=== PATIENT | female | born 1960 | race Caucasian/White ===

== ENCOUNTER 2018-10-20 19:34 | Inpatient (IN) ==
[2018-10-20] MEDS ORDERED: *HR* Nalbuphine 10 MG/ML AMPUL IV STA (20:23)
[2018-10-20] MEDS ORDERED: 0.9 % Sodium Chloride 1,000 ML IVC ONE ×2 (20:23→21:17)
--- NOTE | 2018-10-20 20:23 | Emergency Department Note ---
Disposition Clinical Impression: Acute kidney injury Cellulitis Qualifiers: Site of cellulitis: extremity Site of cellulitis of extremity: lower extremity Laterality: left Qualified Code(s): L03.116 - Cellulitis of left lower limb Diabetes Qualifiers: Diabetes mellitus type: type 2 Diabetes mellitus halfway insulin use: without halfway use Diabetes mellitus complication status: without complication Qualified Code(s): E11.9 - Type 2 diabetes mellitus without complications Disposition: Admitted As Inpatient Condition: Fair Forms: ED Satisfaction Letter, Work/School Release Time of Disposition: 21:40 General Adult HPI - General Chief complaint: ED General Medical Stated complaint: multiple complaints Time Seen by Provider: 10/20/18 19:51 Source: patient, family Mode of arrival: private vehicle Limitations: no limitations Nursing Notes Reviewed: Yes Vital Signs Reviewed: Yes - History of Present Illness HPI Narrative: 58-year-old female presents to the emergency department for evaluation of left lower extremity swelling, redness, tenderness, generally just not feeling well, and increasing thirst, decreased urination since . Patient states she was at the swimming pool all day on when she got home she felt pretty warm which took a shower went to bed, when she woke up on Monday she had redness to her left lower extremity near her ankle and since then has continued to sp read through the entire lower extremity up to the knee and the foot, today she developed blistering and increasing redness "almost like a bruise" to the dorsal surface of the foot. She states she has only urinated one time in 24 hours and it is "orange and brown" with dysuria when she goes. She states she feels incredibly thirsty and she cannot get enough to drink, she has been tired and just generally not feeling well. She does state the last 3 days she had 1 day that she was nauseous, 1 day with vomiting, 1 day with diarrhea but this is all cleared. Patient does have a history of diabetes, she is on metformin. She denies fever, chills, shortness of breath, chest pain, abdominal pain, constipation.. no cancer, no longer trips, does not smoke, not on hormones, no history of blood clots Onset (ago): day(s) Location: lower extremity Radiation: non-radiation Pain Severity: moderate, severe Pain Scale: 8 Quality: aching, constant Consistency: constant Improves with: nothing Worsens with: movement, other (Palpitation) Associated symptoms: Reports: nausea/vomiting. Denies: confusion, chest pain, cough, diaphoresis, fever/chills, headaches, loss of appetite, malaise, rash, seizure, shortness of breath, syncope, weakness Treatments Prior to Arrival: none - Related Data Home Medications Medication Instructions Recorded Confirmed Aspirin [Adult Aspirin] 81 mg PO DAILY 10/20/18 10/20/18 Atorvastatin 10/20/18 10/20/18 Lisinopril 10/20/18 metFORMIN 1,000 mg PO BID 10/20/18 10/20/18 Allergies Allergy/AdvReac Type Severity Reaction Status Date / Time No Known Allergies Allergy Verified 10/20/18 20:40 All systems ED: reviewed and negative except as stated. Review of Systems: As Per [facility] Past Medical History - Past Medical History Attestation: Yes The following information was validated with the patient. Source: patient Medical history: Reports: diabetes, hypertension, other Psychiatric history: Reports: no psych history - Social History Smoking Status: Current some day smoker Smokeless Tobacco Status: No Alcohol use: Reports: none Drug use: Reports: none Physical Exam - General Limitations: no limitations General appearance: alert, in no apparent distress - Head Head exam: atraumatic, normocephalic, normal inspection - Eye Eye exam: Present: normal appearance - ENT ENT exam: mucous membranes moist - Neck Neck exam: Present: normal inspection, full ROM, trachea midline - Chest Chest inspection: Present: normal inspection, symmetric chest wall rise - Respiratory Respiratory exam: Present: normal lung sounds bilaterally - Cardiovascular Cardiovascular exam: Present: regular rate, normal rhythm, normal heart sounds, systolic murmur - Abdominal Exam Abdominal exam: Present: soft, Non-Tender, normal bowel sounds. Absent: tenderness, distention, guarding, rebound - Expanded Lower Extremity Exam Upper leg exam: Present: normal inspection, full ROM Knee exam: Present: normal inspection, full ROM Lower leg exam: Present: tenderness, swelling, erythema, other (warm to touch). Absent: ecchymosis, Homans' sign Ankle exam: Present: full ROM, tenderness, swelling, erythema Foot/toe exam: Present: full ROM, tenderness, swelling, erythema, other (small vesicular areas, appear as fluid shift) Neurovascular/Tendon exam: Present: normal capillary refill. Absent: pulse deficit, motor deficit, sensory deficit - Back Exam Back exam: Present: normal inspection, full ROM. Absent: tenderness - Neurological Exam Neurological exam: Present: alert, oriented X3 - Psychiatric Psychiatric exam: Present: normal affect, normal mood - Skin Skin exam: Present: warm, dry, intact, normal color Course Course Narrative: Well-developed female in no acute distress. Respirations are easy and even. Patient is afebrile, normotensive, non-tachycardic. EKG completed upon arrival at 20:04 reveals a sinus rhythm with a ventricular rate of 85 bpm, [place] interval 149 ms, QTC 474 ms, there is a left bundle branch block, no evidence of ischemia. The left bundle-branch block is new from previous EKG completed in 2002. Physical exam reveals left lower extremity edematous, erythemic and warm to touch, otherwise unremarkable. Wells -2, appears more cellulitic than that of a DVT, subjective history fits cellulitis more than a DVT as well. Concern for renal function given decreased urine, infectious etiology, early sepsis. Attending Dr. Leo has had one-on-one face time with patient and is agreeable to plan of care. 2119-patient has been resting quietly. Labs returned with a unremarkable CBC, negative troponin. Metabolic panel does show an elevation in creatinine of 2.22 and previously have been normal, elevated CK at 643. Lactic acid is unremarkable, UA without evidence of infection. There is no anion gap. Patient with an acute kidney injury as well as cellulitis of left lower extremity. She will require admission to hospital. We will initiate another liter of fluid and then start bicarbonate fluids, we will initiate myosin for the cellulitis. Patient is agreeable to admission to hospital. 2139--spoke with hospitalist Dr. Razo, agreeable for inpatient admission. We will monitor emergency department or admission process is completed. Patient remains critical plan of care. Vital Signs Temperature 97.6 F 10/20/18 19:39 Pulse Rate 101 10/20/18 19:39 Respiratory Rate 16 10/20/18 19:39 Blood Pressure 129/70 10/20/18 19:39 O2 Sat by Pulse Oximetry 96 10/20/18 19:39 Temperature 97.6 F 10/20/18 19:39 Pulse Rate 81 10/20/18 21:24 Respiratory Rate 16 08/03/19 21:24 Blood Pressure 125/61 08/03/19 21:24 O2 Sat by Pulse Oximetry 97 10/20/18 21:24 Oxygen Delivery Oxygen Delivery Room Air Medical Decision Making - Lab Data Result diagrams: 10/20/18 20:10 10/20/18 20:10 Lab Results 10/20/18 10/20/18 10/20/18 Range/Units 20:10 20:10 20:10 WBC 8.2 (4.3-11.1) K/mcL RBC 3.98 (3.82-4.97) M/mcL Hgb 10.4 L (11.5-15.4) g/dL Hct 31.8 L (35.3-44.9) % MCV 79.9 L (83.0-100.0) fL MCH 26.1 L (28.0-33.3) pg MCHC 32.7 (31.6-35.5) g/dL RDW 13.2 (11.5-14.5) % Plt Count 133 L (140-400) K/mcL MPV 9.8 (9.4-12.4) fL Immature Gran % 0.6 (0-4) % Seg Neutrophils % 83.7 % Lymphocytes % 7.2 % Monocytes % 7.7 % Eosinophils % 0.4 % Basophils % 0.4 % Neutrophils # 6.9 (1.6-8.9) K/mcL Lymphocytes # 0.6 (0.6-4.6) K/mcL Monocytes # 0.6 (0.0-1.3) K/mcL Eosinophils # 0.0 (0.0-0.6) K/mcL Basophils # 0.0 (0.0-0.2) K/mcL Platelet Estimate Slight Decrease L (Normal) VBG pH (7.32-7.42) pH Units VBG pCO2 (41-51) mmHg VBG pO2 (25-50) mmHg VBG HCO3 (21-27) mEq/L Sodium 135 L (136-145) mEq/L Potassium 3.4 L (3.5-5.1) mEq/L Chloride 100 (98-107) mEq/L Carbon Dioxide 21 L (23-29) mEq/L BUN 45 H (6-20) mg/dL Creatinine 2.22 H (0.60-1.20) mg/dL Est GFR ( Amer) 28 L (> 60) Est GFR (Non-Af Amer) 23 L (> 60) BUN/Creatinine Ratio 20 (6-26) Glucose 176 H (70-105) mg/dL Serum Osmolality 299 (280-300) mOsm/kg Calculated Osmolality 296 (280-300) Lactic Acid (0.5-2.2) mmol/L Calcium 8.9 (8.6-10.3) mg/dL Total Bilirubin 0.7 (0.3-1.0) mg/dL Direct Bilirubin 0.2 (0.0-0.2) mg/dL Indirect Bilirubin 0.5 (0.0-1.2) mg/dL AST 16 (13-39) Units/L ALT 13 (7-52) Units/L Alkaline Phosphatase 80 (34-104) Units/L Creatine Kinase 643 H (30-223) Units/L Troponin I < 0.03 (< 0.04) ng/mL Serum Total Protein 6.6 (6.4-8.9) g/dL Albumin 3.5 (3.5-5.7) g/dL Globulin 3.1 (2.4-3.5) g/dL Albumin/Globulin Ratio 1.1 (1.1-2.2) Urine Color (Yellow) Urine Clarity (Clear) Urine pH (5.0-8.0) pH Units Ur Specific [place] (1.010-1.025) Urine Protein (Neg-Trace) mg/dL Urine Glucose (UA) (Normal) mg/dL Urine Ketones (Negative) mg/dL Urine Blood (Negative) Urine Nitrite (Negative) Urine Bilirubin (Negative) Urine Urobilinogen (Normal) mg/dL Ur Leukocyte Esterase (Negative) Urine Microscopic RBC (0-3) per hpf Urine Microscopic WBC (0-3) per hpf Ur Squamous Epith Cells (None-Few) per lpf Urine Bacteria (None-Few) per hpf Hyaline Casts (None-Few) per lpf Urine Yeast (None Seen) per hpf Ur Culture Indicated? (NO) 10/20/18 10/20/18 10/20/18 Range/Units 20:23 20:42 20:44 WBC (4.3-11.1) K/mcL RBC (3.82-4.97) M/mcL Hgb (11.5-15.4) g/dL Hct (35.3-44.9) % MCV (83.0-100.0) fL MCH (28.0-33.3) pg MCHC (31.6-35.5) g/dL RDW (11.5-14.5) % Plt Count (140-400) K/mcL MPV (9.4-12.4) fL Immature Gran % (0-4) % Seg Neutrophils % % Lymphocytes % % Monocytes % % Eosinophils % % Basophils % % Neutrophils # (1.6-8.9) K/mcL Lymphocytes # (0.6-4.6) K/mcL Monocytes # (0.0-1.3) K/mcL Eosinophils # (0.0-0.6) K/mcL Basophils # (0.0-0.2) K/mcL Platelet Estimate (Normal) VBG pH 7.41 (7.32-7.42) pH Units VBG pCO2 31 L (41-51) mmHg VBG pO2 62 H (25-50) mmHg VBG HCO3 20 L (21-27) mEq/L Sodium (136-145) mEq/L Potassium (3.5-5.1) mEq/L Chloride (98-107) mEq/L Carbon Dioxide (23-29) mEq/L BUN (6-20) mg/dL Creatinine (0.60-1.20) mg/dL Est GFR ( Amer) (> 60) Est GFR (Non-Af Amer) (> 60) BUN/Creatinine Ratio (6-26) Glucose (70-105) mg/dL Serum Osmolality (280-300) mOsm/kg Calculated Osmolality (280-300) Lactic Acid 1.1 (0.5-2.2) mmol/L Calcium (8.6-10.3) mg/dL Total Bilirubin (0.3-1.0) mg/dL Direct Bilirubin (0.0-0.2) mg/dL Indirect Bilirubin (0.0-1.2) mg/dL AST (13-39) Units/L ALT (7-52) Units/L Alkaline Phosphatase (34-104) Units/L Creatine Kinase (30-223) Units/L Troponin I (< 0.04) ng/mL Serum Total Protein (6.4-8.9) g/dL Albumin (3.5-5.7) g/dL Globulin (2.4-3.5) g/dL Albumin/Globulin Ratio (1.1-2.2) Urine Color Dark Yellow (Yellow) Urine Clarity Cloudy A (Clear) Urine pH 5.0 (5.0-8.0) pH Units Ur Specific [place] 1.018 (1.010-1.025) Urine Protein Trace (Neg-Trace) mg/dL Urine Glucose (UA) Normal (Normal) mg/dL Urine Ketones Negative (Negative) mg/dL Urine Blood Negative (Negative) Urine Nitrite Negative (Negative) Urine Bilirubin Small H (Negative) Urine Urobilinogen Normal (Normal) mg/dL Ur Leukocyte Esterase Moderate H (Negative) Urine Microscopic RBC 0-3 (0-3) per hpf Urine Microscopic WBC 5-15 H (0-3) per hpf Ur Squamous Epith Cells Many H (None-Few) per lpf Urine Bacteria None Seen (None-Few) per hpf Hyaline Casts Few (None-Few) per lpf Urine Yeast Few H (None Seen) per hpf Ur Culture Indicated? YES A (NO)
[2018-10-20 20:43] LABS: Basophils % 0.4 %; Eosinophils % 0.4 %; Hematocrit 31.8 % (35.3-44.9); Hemoglobin 10.4 g/dL (11.5-15.4); Immature Granulocytes % 0.6 % (0-4); Lymphocytes # 0.6 K/mcL (0.6-4.6); Lymphocytes % 7.2 %; Mean Corpuscular HGB Conc 32.7 g/dL (31.6-35.5); Mean Corpuscular Hemoglobin 26.1 pg (28.0-33.3); Mean Corpuscular Volume 79.9 fL (83.0-100.0); Mean Platelet Volume 9.8 fL (9.4-12.4); Monocytes # 0.6 K/mcL (0.0-1.3); Monocytes % 7.7 %; Neutrophils # 6.9 K/mcL (1.6-8.9); Platelet Count 133 K/mcL (140-400); Red Blood Count 3.98 M/mcL (3.82-4.97); Red Cell Distribution Width 13.2 % (11.5-14.5); Segmented Neutrophils % 83.7 %; White Blood Count 8.2 K/mcL (4.3-11.1)
[2018-10-20 20:46] LABS: VBG HCO3 20 mEq/L (21-27); VBG PCO2 31 mmHg (41-51); VBG PH 7.41 pH Units (7.32-7.42); VBG PO2 62 mmHg (25-50)
[2018-10-20 20:55] LABS: Bilirubin,Urine Small (Negative); Blood,Urine Negative (Negative); Clarity,Urine Cloudy (Clear); Color,Urine Dark Yellow (Yellow); Glucose,Urine (UA) Normal (Normal); Ketones,Urine Negative (Negative); Leukocyte Esterase,Urine Moderate (Negative); Nitrite,Urine Negative (Negative); Protein,Urine Trace mg/dL (Neg-Trace); Specific Gravity,Urine 1.018 (1.010-1.025); Urobilinogen,Urine Normal (Normal)
[2018-10-20 20:58] LABS: Bacteria,Urine None Seen per hpf (None-Few); Squamous Epithelial Cell,Urine Many per lpf (None-Few)
[2018-10-20 21:06] LABS: Alanine Aminotransferase 13 Units/L (7-52); Albumin 3.5 g/dL (3.5-5.7); Albumin/Globulin Ratio 1.1 (1.1-2.2); Alkaline Phosphatase 80 Units/L (34-104); Aspartate Amino Transferase 16 Units/L (13-39); BUN/Creatinine Ratio 20 (6-26); Bilirubin,Direct 0.2 mg/dL (0.0-0.2); Bilirubin,Indirect 0.5 mg/dL (0.0-1.2); Bilirubin,Total 0.7 mg/dL (0.3-1.0); Blood Urea Nitrogen 45 mg/dL (6-20); Calcium 8.9 mg/dL (8.6-10.3); Carbon Dioxide 21 mEq/L (23-29); Chloride 100 mEq/L (98-107); Creatine Kinase 643 Units/L (30-223); Globulin 3.1 g/dL (2.4-3.5); Glucose 176 mg/dL (70-105); Osmolality,Calculated 296 (280-300); Potassium 3.4 mEq/L (3.5-5.1); Sodium 135 mEq/L (136-145); Total Protein 6.6 g/dL (6.4-8.9); Troponin I < 0.03 ng/mL (< 0.04); eGFR For African Americans 28 (> 60); eGFR For Non-African Americans 23 (> 60)
[2018-10-20 21:14] LABS: Hyaline Casts,Urine Few per lpf (None-Few); RBC,Urine 0-3 per hpf (0-3); Yeast,Urine Few per hpf (None Seen)
[2018-10-20 21:23] LABS: Platelet Estimate Slight Decrease (Normal)
[2018-10-20] MEDS ORDERED: Sodium Bicarbonate 150 MEQ in D5% in Water 1,000 ML IVC SCH (21:30)
[2018-10-20] MEDS ORDERED: Dextrose Gel 15 GM/37.5 ML TUBE PO PRN ×2 (22:07)
[2018-10-20] MEDS ORDERED: *HR* Dextrose 50 % in Water (Syg) 50 ML SYRINGE IVP PRN (22:07)
--- NOTE | 2018-10-20 22:31 | Emergency Department Note ---
Disposition Clinical Impression: Acute kidney injury Cellulitis Qualifiers: Site of cellulitis: extremity Site of cellulitis of extremity: lower extremity Laterality: left Qualified Code(s): L03.116 - Cellulitis of left lower limb Diabetes Qualifiers: Diabetes mellitus type: type 2 Diabetes mellitus alf insulin use: without alf use Diabetes mellitus complication status: without complication Qualified Code(s): E11.9 - Type 2 diabetes mellitus without complications Disposition: Admitted As Inpatient Condition: Fair Time of Disposition: 22:31 General Adult HPI - General Chief complaint: ED General Medical Stated complaint: multiple complaints Time Seen by Provider: 10/20/18 19:51 Source: patient, family Mode of arrival: private vehicle Limitations: no limitations - History of Present Illness Location: lower extremity Pain Scale: 0 Quality: aching, constant Improves with: nothing Worsens with: movement, other (Palpitation) Associated symptoms: Reports: nausea/vomiting. Denies: confusion, chest pain, cough, diaphoresis, fever/chills, headaches, loss of appetite, malaise, rash, seizure, shortness of breath, syncope, weakness Treatments Prior to Arrival: none - Related Data Home Medications Medication Instructions Recorded Confirmed Aspirin [Adult Aspirin] 81 mg PO DAILY 10/20/18 10/20/18 Atorvastatin 10/20/18 10/20/18 Lisinopril 10/20/18 metFORMIN 1,000 mg PO BID 10/20/18 10/20/18 Allergies Allergy/AdvReac Type Severity Reaction Status Date / Time No Known Allergies Allergy Verified 10/20/18 20:40 Past Medical History - Past Medical History Medical history: Reports: diabetes, hypertension, other Psychiatric history: Reports: no psych history - Social History Smoking Status: Current some day smoker Smokeless Tobacco Status: No Alcohol use: Reports: none Drug use: Reports: none Physical Exam - General Limitations: no limitations General appearance: alert, in no apparent distress Course Vital Signs Temperature 97.6 F 10/20/18 19:39 Pulse Rate 101 10/20/18 19:39 Respiratory Rate 16 10/20/18 19:39 Blood Pressure 129/70 10/20/18 19:39 O2 Sat by Pulse Oximetry 96 10/20/18 19:39 Temperature 97.6 F 10/20/18 19:39 Pulse Rate 86 10/20/18 22:05 Respiratory Rate 16 10/20/18 22:05 Blood Pressure 116/60 10/20/18 22:05 O2 Sat by Pulse Oximetry 99 10/20/18 22:05 Oxygen Delivery Oxygen Delivery Room Air Medical Decision Making - Lab Data Result diagrams: 10/20/18 20:10 10/20/18 20:10 Lab Results 10/20/18 10/20/18 10/20/18 Range/Units 20:10 20:10 20:10 WBC 8.2 (4.3-11.1) K/mcL RBC 3.98 (3.82-4.97) M/mcL Hgb 10.4 L (11.5-15.4) g/dL Hct 31.8 L (35.3-44.9) % MCV 79.9 L (83.0-100.0) fL MCH 26.1 L (28.0-33.3) pg MCHC 32.7 (31.6-35.5) g/dL RDW 13.2 (11.5-14.5) % Plt Count 133 L (140-400) K/mcL MPV 9.8 (9.4-12.4) fL Immature Gran % 0.6 (0-4) % Seg Neutrophils % 83.7 % Lymphocytes % 7.2 % Monocytes % 7.7 % Eosinophils % 0.4 % Basophils % 0.4 % Neutrophils # 6.9 (1.6-8.9) K/mcL Lymphocytes # 0.6 (0.6-4.6) K/mcL Monocytes # 0.6 (0.0-1.3) K/mcL Eosinophils # 0.0 (0.0-0.6) K/mcL Basophils # 0.0 (0.0-0.2) K/mcL Platelet Estimate Slight Decrease L (Normal) VBG pH (7.32-7.42) pH Units VBG pCO2 (41-51) mmHg VBG pO2 (25-50) mmHg VBG HCO3 (21-27) mEq/L Sodium 135 L (136-145) mEq/L Potassium 3.4 L (3.5-5.1) mEq/L Chloride 100 (98-107) mEq/L Carbon Dioxide 21 L (23-29) mEq/L BUN 45 H (6-20) mg/dL Creatinine 2.22 H (0.60-1.20) mg/dL Est GFR ( Amer) 28 L (> 60) Est GFR (Non-Af Amer) 23 L (> 60) BUN/Creatinine Ratio 20 (6-26) Glucose 176 H (70-105) mg/dL Serum Osmolality 299 (280-300) mOsm/kg Calculated Osmolality 296 (280-300) Lactic Acid (0.5-2.2) mmol/L Calcium 8.9 (8.6-10.3) mg/dL Total Bilirubin 0.7 (0.3-1.0) mg/dL Direct Bilirubin 0.2 (0.0-0.2) mg/dL Indirect Bilirubin 0.5 (0.0-1.2) mg/dL AST 16 (13-39) Units/L ALT 13 (7-52) Units/L Alkaline Phosphatase 80 (34-104) Units/L Creatine Kinase 643 H (30-223) Units/L Troponin I < 0.03 (< 0.04) ng/mL Serum Total Protein 6.6 (6.4-8.9) g/dL Albumin 3.5 (3.5-5.7) g/dL Globulin 3.1 (2.4-3.5) g/dL Albumin/Globulin Ratio 1.1 (1.1-2.2) Urine Color (Yellow) Urine Clarity (Clear) Urine pH (5.0-8.0) pH Units Ur Specific [place] (1.010-1.025) Urine Protein (Neg-Trace) mg/dL Urine Glucose (UA) (Normal) mg/dL Urine Ketones (Negative) mg/dL Urine Blood (Negative) Urine Nitrite (Negative) Urine Bilirubin (Negative) Urine Urobilinogen (Normal) mg/dL Ur Leukocyte Esterase (Negative) Urine Microscopic RBC (0-3) per hpf Urine Microscopic WBC (0-3) per hpf Ur Squamous Epith Cells (None-Few) per lpf Urine Bacteria (None-Few) per hpf Hyaline Casts (None-Few) per lpf Urine Yeast (None Seen) per hpf Ur Culture Indicated? (NO) 10/20/18 10/20/18 10/20/18 Range/Units 20:23 20:42 20:44 WBC (4.3-11.1) K/mcL RBC (3.82-4.97) M/mcL Hgb (11.5-15.4) g/dL Hct (35.3-44.9) % MCV (83.0-100.0) fL MCH (28.0-33.3) pg MCHC (31.6-35.5) g/dL RDW (11.5-14.5) % Plt Count (140-400) K/mcL MPV (9.4-12.4) fL Immature Gran % (0-4) % Seg Neutrophils % % Lymphocytes % % Monocytes % % Eosinophils % % Basophils % % Neutrophils # (1.6-8.9) K/mcL Lymphocytes # (0.6-4.6) K/mcL Monocytes # (0.0-1.3) K/mcL Eosinophils # (0.0-0.6) K/mcL Basophils # (0.0-0.2) K/mcL Platelet Estimate (Normal) VBG pH 7.41 (7.32-7.42) pH Units VBG pCO2 31 L (41-51) mmHg VBG pO2 62 H (25-50) mmHg VBG HCO3 20 L (21-27) mEq/L Sodium (136-145) mEq/L Potassium (3.5-5.1) mEq/L Chloride (98-107) mEq/L Carbon Dioxide (23-29) mEq/L BUN (6-20) mg/dL Creatinine (0.60-1.20) mg/dL Est GFR ( Amer) (> 60) Est GFR (Non-Af Amer) (> 60) BUN/Creatinine Ratio (6-26) Glucose (70-105) mg/dL Serum Osmolality (280-300) mOsm/kg Calculated Osmolality (280-300) Lactic Acid 1.1 (0.5-2.2) mmol/L Calcium (8.6-10.3) mg/dL Total Bilirubin (0.3-1.0) mg/dL Direct Bilirubin (0.0-0.2) mg/dL Indirect Bilirubin (0.0-1.2) mg/dL AST (13-39) Units/L ALT (7-52) Units/L Alkaline Phosphatase (34-104) Units/L Creatine Kinase (30-223) Units/L Troponin I (< 0.04) ng/mL Serum Total Protein (6.4-8.9) g/dL Albumin (3.5-5.7) g/dL Globulin (2.4-3.5) g/dL Albumin/Globulin Ratio (1.1-2.2) Urine Color Dark Yellow (Yellow) Urine Clarity Cloudy A (Clear) Urine pH 5.0 (5.0-8.0) pH Units Ur Specific [place] 1.018 (1.010-1.025) Urine Protein Trace (Neg-Trace) mg/dL Urine Glucose (UA) Normal (Normal) mg/dL Urine Ketones Negative (Negative) mg/dL Urine Blood Negative (Negative) Urine Nitrite Negative (Negative) Urine Bilirubin Small H (Negative) Urine Urobilinogen Normal (Normal) mg/dL Ur Leukocyte Esterase Moderate H (Negative) Urine Microscopic RBC 0-3 (0-3) per hpf Urine Microscopic WBC 5-15 H (0-3) per hpf Ur Squamous Epith Cells Many H (None-Few) per lpf Urine Bacteria None Seen (None-Few) per hpf Hyaline Casts Few (None-Few) per lpf Urine Yeast Few H (None Seen) per hpf Ur Culture Indicated? YES A (NO) Attestation Statement - Attestation Attestation: I have seen this patient with the mid level provider. I personally evaluated this patient. I reviewed the charting by the mid-level provider and in ag reement with the charting including past medical history family history review of systems current history and physical examination laboratory testing and imaging. Please see documentation by the mid-level provider for full H&P and documentation.
--- NOTE | 2018-10-20 22:47 | Internal Med History&Physical ---
Date of Encounter: 10/20/18 Time of Encounter: 22:46 Internal Medicine - H&P: HPI Admitted From: Home Plans for Post Hospital Care: Home History of present illness: Sissy Mcclain is a 58 year old woman with hypertension and diabetes who [place] and the next day developed painful swelling of her left lower extremity. She denies trauma to the area. She says it gradually worsened in regards to the degree of swelling, accompanied by warmth and redness. She has also noticed decreased urine output, saying she urinates only once in 24 hours over the last few days. She says she feels significantly thirsty and parched as though she were in a desert. She says this morning noticed blistering in her left foot and extension of the swelling to her knee. She feels generalized malaise, fatigued and not feeling well. She reports having been nauseated with 1 episode of vomiting and diarrhea on day 1. She denies associated fever, chills, shortness of breath, dyspnea and abdominal pain however. In the ER she was given a dose of vancomycin. Her labs revealed a notable elevation in her serum creatinine and mild decrease in Hgb & platelets. She is admitted for further care. Vitals: Reviewed General: Well-developed woman lying comfortably in bed in NAD Skin: Warm and supple. HEENT: Moist mucous membranes. No conjunctivae pallor. Neck: No lymphadenopathy. No JVD. No carotid bruits. No palpable thyroid. Chest: Normal thoracic expansion. Normal breath sounds. Clear to auscultation. Heart: Normal S1 & S2; rhythmic. No rubs or murmurs. Abdomen: Non-distended, soft and non-tender to palpation. No peritoneal reaction. Extremities: Left leg is circumferentially larger than the right, swollen with taut, shiny skin, warm to touch, skin dimpling on the posterior aspect and moderately tender to touch. Erythematous blisters forming on the dorsal foot. Neurological: Awake, alert and oriented to person, place and time. No focal deficits. Psych: Affect appropriate. Assessment/Plan 1. Non-purulent cellulitis of the left lower leg: There were no skin openings visualized on thorough examination of this left leg which could have served as a point of entry. The timely association with swimming in a city pool prompts concern for certain gram negative bacilli that are that are frequently seen in freshwater scenarios and even mycobacteria although less likely. I believe she needs more than simple Staph/Streptococcal coverage for now. Will get a non-con trast CT scan for now as well as a venous Doppler. Continue vancomycin and add on cefepime 1gr q12hrs (based on her current CrCl). 2. Acute kidney injury: I am concerned that the patient may have developed some form of ATN perhaps related to her underlying infection. The concomitant thrombocytopenia and anemia however mild should prompt an acquired infectious- induced hemolytic uremic syndrome on the differential especially with the diarrheal antecedent and the present inflammatory state. For now, there is no evidence of microscopic hematuria, schistocytes on smear, Hgb <8g/dl all of which would be concerning. There is also moderate CPK elevation which can also cause DISHA but it is unclear if this is recently developing or if we are catching the tail end of it. For now, she has a mccormick placed so we can monitor her output as we continue to provide IVF. Repeat BMP and CK in the morning. 3. Bicytopenia: As mentioned above. Will check iron studies and check for hemolysis. Monitor closely. 4. Rhabdomyolysis: Mild. Likely from the leg swelling and underlying tissue destruction. Will get a CT, IVF running and monitor levels. 5. Diabetes: Hold metformin in the setting of DISHA. Place on insulin sliding scale with diabetic diet. 6. Hypertension: Hold Lisinopril in the setting of current DISHA. Past Med Surg Social Fam HX - Past Medical History Medical history: diabetes, hypertension, other Psychiatric history: no psych history - Social History Smoking Status: Current some day smoker Smokeless Tobacco Status: No Alcohol use: none Drug use: none Internal Medicine - H&P: Meds Aspirin [Adult Aspirin] 81 mg PO DAILY 10/20/18 [History] Atorvastatin 10/20/18 [History] Lisinopril 10/20/18 [History] metFORMIN 1,000 mg PO BID 10/20/18 [History] Allergy/AdvReac Type Severity Reaction Status Date / Time No Known Allergies Allergy Verified 10/20/18 20:40 All Systems PM: A 10-system review of systems was performed and is negative for pertinent findings except as documented above in the HPI. Family history reviewed and found non-contributory. - Constitutional Vitals: Temp Pulse Resp BP Pulse Ox 97.6 F 86 16 116/60 99 10/20/18 19:39 10/20/18 22:05 10/20/18 22:05 10/20/18 22:05 10/20/18 22:05 Exam: . Internal Med - H&P Results - Labs CBC & Chem 7: 10/20/18 20:10 10/20/18 20:10 Labs: Short CBC 10/20/18 Range/Units 20:10 WBC 8.2 (4.3-11.1) K/mcL Hgb 10.4 L (11.5-15.4) g/dL Hct 31.8 L (35.3-44.9) % Plt Count 133 L (140-400) K/mcL Neutrophils # 6.9 (1.6-8.9) K/mcL BMP 10/20/18 20:10 Sodium 135 L Potassium 3.4 L Chloride 100 Carbon Dioxide 21 L BUN 45 H Creatinine 2.22 H Glucose 176 H Calcium 8.9 Cardiac Enzymes 10/20/18 Range/Units 20:10 Troponin I < 0.03 (< 0.04) ng/mL Liver Function 10/20/18 Range/Units 20:10 Total Bilirubin 0.7 (0.3-1.0) mg/dL Direct Bilirubin 0.2 (0.0-0.2) mg/dL AST 16 (13-39) Units/L ALT 13 (7-52) Units/L Alkaline Phosphatase 80 (34-104) Units/L Albumin 3.5 (3.5-5.7) g/dL Urine 10/20/18 Range/Units 20:42 Urine Color Dark Yellow (Yellow) Urine Clarity Cloudy A (Clear) Urine pH 5.0 (5.0-8.0) pH Units Ur Specific [place] 1.018 (1.010-1.025) Urine Protein Trace (Neg-Trace) mg/dL Urine Glucose (UA) Normal (Normal) mg/dL - ABG Interpretation ABG results: 10/20/18 20:44 VBG pH 7.41 VBG pCO2 31 L VBG pO2 62 H VBG HCO3 20 L - Time Spent With Patient Total time spent is greater than 50% in coordination of care (as documented) at patient's floor/unit and/or counseling patient:
[2018-10-21] MEDS: traMADol 50 MG TABLET PO PRN ×2 (00:53→12:35)
[2018-10-21] MEDS: Cefepime HCl 1,000 MG in 0.9 % Sodium Chloride Mini Bag 100 ML IVPB SCH ×2 (00:53→21:54)
[2018-10-21] MEDS: Ringers Solution, Lactated 1,000 ML IVC SCH ×2 (00:54→05:50)
[2018-10-21] MEDS: Acetaminophen 325 MG TABLET PO PRN ×2 (05:50→20:24)
[2018-10-21] MEDS ORDERED: *HR* Heparin 5,000 UNIT/ML VIAL SQ SCH (06:00)
[2018-10-21] MEDS: Aspirin Enteric Coated 81 MG Tablet PO SCH (08:06)
[2018-10-21] MEDS: Insulin LISPRO 300 UNITS/3 ML VIAL SQ SCH ×4 (08:12→20:27)
[2018-10-21 09:46] LABS: Hematocrit 27.3 % (35.3-44.9); Hemoglobin 8.9 g/dL (11.5-15.4); Immature Reticulocyte % 4.4 % (11.0-38.0); Mean Corpuscular HGB Conc 32.6 g/dL (31.6-35.5); Mean Corpuscular Hemoglobin 26.3 pg (28.0-33.3); Mean Corpuscular Volume 80.8 fL (83.0-100.0); Mean Platelet Volume 9.6 fL (9.4-12.4); Platelet Count 103 K/mcL (140-400); Red Blood Count 3.38 M/mcL (3.82-4.97); Red Cell Distribution Width 13.4 % (11.5-14.5); Retculocyte # 0.03 M/mcL (0.05-0.10); Reticulocyte % 0.9 % (1.6-2.8); White Blood Count 9.2 K/mcL (4.3-11.1)
[2018-10-21 09:52] LABS: INR 1.1; Prothrombin Time 12.2 Seconds (9.4-12.1)
[2018-10-21 09:55] LABS: Activated Partial Thrombo Time 28.5 Seconds (26.0-36.0)
[2018-10-21 10:06] LABS: Potassium 3.3 mEq/L (3.5-5.1)
[2018-10-21 10:07] LABS: Lymphocytes # 1.1 K/mcL (0.6-4.6); Monocytes # 0.4 K/mcL (0.0-1.3); Neutrophils # 7.7 K/mcL (1.6-8.9); Platelet Estimate Slight Decrease (Normal)
--- NOTE | 2018-10-21 13:32 | Internal Med Progress Note ---
Hospitalist Progress Note - Encounter Date of Encounter: 10/21/18 Time of Encounter: 13:30 - Subjective Interval History: Patient was seen and examined at bedside. Reports no acute issue. Reports mild pain. Patient reports that her left leg swelling and redness has significantly gone down since admission. - Exam Vitals: Temp Pulse Resp BP Pulse Ox 99.5 F 93 16 107/68 97 10/21/18 12:17 10/21/18 12:17 10/21/18 12:17 10/21/18 12:17 10/21/18 12:17 Exam: General: A & O 3, In no acute distress HENNT: PERRLA. Head atraumatic and makes supple CVS S1 and S2 regular, no murmur RS: Clear to air entry bilaterally, no wheeze, no crackles Abdomen: Soft and nontender. Bowel sounds normal 4 Extremities: Left lower extremity is significantly swollen and erythematous. Warm to touch. Nontender. Neurology: Cranial 2 through 12 normal. Motor strength 5/5 bilaterally. Sensation intact - Assessment and Plan (1) Cellulitis Current Visit: Yes Status: Acute Assessment and Plan: Continue IV antibiotic including vancomycin and cefepime. Continue hydration. (2) Rhabdomyolysis Current Visit: Yes Status: Acute Assessment and Plan: Continue IV hydration. Continue monitoring of kidney function. Repeat CK level today @ 3 pm (3) HTN (hypertension) Current Visit: Yes Status: Acute Assessment and Plan: We will continue to monitor. Lisinopril has been hel due to DISHA (4) Acute kidney injury Current Visit: Yes Status: Acute Assessment and Plan: Continue hydration and monitoring kidney function. (5) Diabetes Current Visit: Yes Status: Acute Assessment and Plan: Hold metformin and continue insulin regimen. - Time Spent with Patient Total time spent is greater than 50% in coordination of care (as documented) at patient's floor/unit and/or counseling patient: 25 - 35 minutes Plan of Care Discussed with: patient Internal Medicine: Result - Labs CBC & Chem 7: 10/21/18 09:23 10/21/18 09:23 Labs: Short CBC 10/20/18 10/21/18 Range/Units 20:10 09:23 WBC 8.2 9.2 (4.3-11.1) K/mcL Hgb 10.4 L 8.9 L D (11.5-15.4) g/dL Hct 31.8 L 27.3 L (35.3-44.9) % Plt Count 133 L 103 L (140-400) K/mcL Neutrophils # 6.9 7.7 (1.6-8.9) K/mcL BMP 10/20/18 10/21/18 20:10 09:23 Sodium 135 L 138 Potassium 3.4 L 3.3 L Chloride 100 103 Carbon Dioxide 21 L 21 L BUN 45 H 37 H Creatinine 2.22 H 1.51 H Glucose 176 H 149 H Calcium 8.9 8.0 L Cardiac Enzymes 10/20/18 Range/Units 20:10 Troponin I < 0.03 (< 0.04) ng/mL Liver Function 10/20/18 Range/Units 20:10 Total Bilirubin 0.7 (0.3-1.0) mg/dL Direct Bilirubin 0.2 (0.0-0.2) mg/dL AST 16 (13-39) Units/L ALT 13 (7-52) Units/L Alkaline Phosphatase 80 (34-104) Units/L Albumin 3.5 (3.5-5.7) g/dL Urine 10/20/18 Range/Units 20:42 Urine Color Dark Yellow (Yellow) Urine Clarity Cloudy A (Clear) Urine pH 5.0 (5.0-8.0) pH Units Ur Specific [place] 1.018 (1.010-1.025) Urine Protein Trace (Neg-Trace) mg/dL Urine Glucose (UA) Normal (Normal) mg/dL - ABG Interpretation ABG results: PT/INR, D-dimer PT 12.2 Seconds (9.4-12.1) H 10/21/18 09:23 Consult Discharge Plan - Plan Referrals: Christine Mart, [employer] [Primary Care Provider] - (1) Cellulitis Qualifiers: Site of cellulitis: extremity Site of cellulitis of extremity: lower extremity Laterality: left Qualified Code(s): L03.116 - Cellulitis of left lower limb (5) Diabetes Qualifiers: Diabetes mellitus type: type 2 Diabetes mellitus terminal worker insulin use: without terminal worker use Diabetes mellitus complication status: without complication Qualified Code(s): E11.9 - Type 2 diabetes mellitus without complications
[2018-10-21 15:07] LABS: Calcium 8.3 mg/dL (8.6-10.3); Potassium 3.5 mEq/L (3.5-5.1)
[2018-10-21] MEDS: *HR* Heparin 5,000 UNIT/ML VIAL SQ SCH (18:15)
[2018-10-21] MEDS: 0.9 % Sodium Chloride 1,000 ML IVC SCH (18:15)
[2018-10-22] MEDS: traMADol 50 MG TABLET PO PRN ×2 (03:46→22:33)
[2018-10-22] MEDS: 0.9 % Sodium Chloride 1,000 ML IVC SCH ×5 (03:48→21:15)
[2018-10-22 04:27] LABS: Basophils % 0.2 %; Eosinophils # 0.1 K/mcL (0.0-0.6); Eosinophils % 0.5 %; Hematocrit 27.8 % (35.3-44.9); Hemoglobin 8.9 g/dL (11.5-15.4); Immature Granulocytes % 2.4 % (0-4); Lymphocytes # 1.4 K/mcL (0.6-4.6); Lymphocytes % 10.4 %; Mean Corpuscular Hemoglobin 26.1 pg (28.0-33.3); Mean Corpuscular Volume 81.5 fL (83.0-100.0); Monocytes % 7.5 %; Neutrophils # 10.4 K/mcL (1.6-8.9); Platelet Count 140 K/mcL (140-400); Red Blood Count 3.41 M/mcL (3.82-4.97); Red Cell Distribution Width 13.6 % (11.5-14.5); White Blood Count 13.1 K/mcL (4.3-11.1)
[2018-10-22 04:45] LABS: Calcium 8.3 mg/dL (8.6-10.3); Potassium 3.3 mEq/L (3.5-5.1)
[2018-10-22] MEDS: *HR* Heparin 5,000 UNIT/ML VIAL SQ SCH ×2 (06:37→17:46)
[2018-10-22] MEDS ORDERED: 0.9 % Sodium Chloride 500 ML IV.SOLN IVC ONE (08:24)
[2018-10-22] MEDS ORDERED: 0.9 % Sodium Chloride 1,000 ML ONE (09:22)
[2018-10-22] MEDS: Insulin LISPRO 300 UNITS/3 ML VIAL SQ SCH ×4 (09:47→20:37)
[2018-10-22] MEDS: Aspirin Enteric Coated 81 MG Tablet PO SCH (09:48)
[2018-10-22] MEDS ORDERED: 0.9 % Sodium Chloride 1,000 ML IVC ONE ×2 (09:52→17:37)
--- NOTE | 2018-10-22 11:21 | Internal Med Progress Note ---
Hospitalist Progress Note - Encounter Date of Encounter: 10/22/18 Time of Encounter: 11:19 - Subjective Interval History: Was seen and examined at bedside. Today patient denies any significant concerns today. Patient reports that she can move her left lower extremity today and it does not heart to touch. She is currently on vancomycin and cefepime for cellulitis. - Exam Vitals: Temp Pulse Resp BP Pulse Ox 99.1 F 88 14 126/70 94 10/22/18 08:01 10/22/18 08:01 10/22/18 08:01 10/22/18 08:01 10/22/18 08:01 Exam: General: A & O 3, In no acute distress HENNT: PERRLA. Head atraumatic and makes supple CVS S1 and S2 regular, no murmur RS: Clear to air entry bilaterally, no wheeze, no crackles Abdomen: Soft and nontender. Bowel sounds normal 4 Extremities: LLW erythma has reduced in size. Initially patient had erythma up to left knee and now it has decreased in size. Warm to touch. Nontender. Neurology: Cranial 2 through 12 normal. Motor strength 5/5 bilaterally. Sensation intact - Assessment and Plan (1) Cellulitis Current Visit: Yes Status: Acute Assessment and Plan: Continue IV antibiotic including vancomycin and cefepime. Continue hydration. Patient's WBC count has trended up. We will continue current antibiotic since on exam erythema at LLE has reduced since admission. We will monitor. We will consider ID consult if not improving. (2) Rhabdomyolysis Current Visit: Yes Status: Acute Assessment and Plan: Patient's CK level is trending up. We will administer bolus this morning. We will increase the fluid rate to 200 mL per hour. We will monitor kidney function and CK level will repeat lab at 3 PM this afternoon. Consider nephrology consult if does not improve. (3) HTN (hypertension) Current Visit: Yes Status: Acute Assessment and Plan: We will continue to monitor. Lisinopril has been hel due to DISHA (4) Acute kidney injury Current Visit: Yes Status: Acute Assessment and Plan: Continue hydration and monitoring kidney function. (5) Diabetes Current Visit: Yes Status: Acute Assessment and Plan: Hold metformin and continue insulin regimen. - Time Spent with Patient Total time spent is greater than 50% in coordination of care (as documented) at patient's floor/unit and/or counseling patient: 25 - 35 minutes Plan of Care Discussed with: patient Internal Medicine: Result - Labs CBC & Chem 7: 10/22/18 03:49 10/22/18 03:49 Labs: Short CBC 10/22/18 Range/Units 03:49 WBC 13.1 H (4.3-11.1) K/mcL Hgb 8.9 L (11.5-15.4) g/dL Hct 27.8 L (35.3-44.9) % Plt Count 140 (140-400) K/mcL Neutrophils # 10.4 H (1.6-8.9) K/mcL BMP 10/21/18 10/22/18 14:35 03:49 Sodium 134 L 135 L Potassium 3.5 3.3 L Chloride 105 104 Carbon Dioxide 22 L 20 L BUN 35 H 32 H Creatinine 1.35 H 1.39 H Glucose 138 H 92 Calcium 8.3 L 8.3 L - ABG Interpretation ABG results: PT/INR, D-dimer PT 12.2 Seconds (9.4-12.1) H 10/21/18 09:23 - Impressions Impressions Lower Extremity CT 10/20/18 22:03 IMPRESSION: 1. Extensive subcutaneous fat stranding throughout the left leg and foot compatible with cellulitis versus bland edema. No drainable fluid collection or evidence of fasciitis. 2. No acute osseous abnormality. D/ / Nithin Meraz MD / Nithin Meraz MD Interpreting Provider: Nithin Meraz MD Consult Discharge Plan - Plan Referrals: Christine Mart, H[employer]TER [Primary Care Provider] - (1) Cellulitis Qualifiers: Site of cellulitis: extremity Site of cellulitis of extremity: lower extremity Laterality: left Qualified Code(s): L03.116 - Cellulitis of left lower limb (5) Diabetes Qualifiers: Diabetes mellitus type: type 2 Diabetes mellitus long chain beamer insulin use: without longterm use Diabetes mellitus complication status: without complication Qualified Code(s): E11.9 - Type 2 diabetes mellitus without complications
[2018-10-22] MEDS: Cefepime HCl 2,000 MG in Water for inj. (sterile) 20 ML IVP SCH (14:00)
[2018-10-22] MEDS: Acetaminophen 325 MG TABLET PO PRN (14:57)
[2018-10-22 15:34] LABS: Calcium 7.8 mg/dL (8.6-10.3); Potassium 3.7 mEq/L (3.5-5.1)
[2018-10-23] MEDS: Cefepime HCl 2,000 MG in Water for inj. (sterile) 20 ML IVP SCH ×2 (05:45→17:07)
[2018-10-23] MEDS: 0.9 % Sodium Chloride 1,000 ML IVC SCH ×4 (05:46→22:10)
[2018-10-23 05:50] LABS: Eosinophils # 0.1 K/mcL (0.0-0.6); Hematocrit 23.8 % (35.3-44.9); Hemoglobin 7.7 g/dL (11.5-15.4); Mean Corpuscular HGB Conc 32.4 g/dL (31.6-35.5); Mean Corpuscular Hemoglobin 26.8 pg (28.0-33.3); Mean Corpuscular Volume 82.9 fL (83.0-100.0); Mean Platelet Volume 10.1 fL (9.4-12.4); Monocytes # 0.8 K/mcL (0.0-1.3); Platelet Count 148 K/mcL (140-400); Red Blood Count 2.87 M/mcL (3.82-4.97); Red Cell Distribution Width 13.7 % (11.5-14.5); White Blood Count 9.9 K/mcL (4.3-11.1)
[2018-10-23 06:06] LABS: Potassium 3.9 mEq/L (3.5-5.1)
[2018-10-23] MEDS: *HR* Heparin 5,000 UNIT/ML VIAL SQ SCH ×2 (06:14→17:09)
--- NOTE | 2018-10-23 06:26 | Electrocardiograph Report ---
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
[2018-10-23] MEDS ORDERED: 0.9 % Sodium Chloride 1,000 ML IVC ONE (06:47)
[2018-10-23 06:56] LABS: Platelet Estimate Normal (Normal)
--- NOTE | 2018-10-23 08:40 | Orthopedic Consult Note ---
Date of Encounter: 10/23/18 Time of Encounter: 08:40 Assessment and Plan (1) Cellulitis Current Visit: Yes Status: Acute The diagnosis and treatment options were discussed with the patient. Her CK is elevated but it seems to the level and off. Her exam her compartments are soft and compressible and she has minimal pain with no pain with passive stretch. Recommend continuing to treat with IV antibiotics per the medical team. No surgical intervention recommended. Will s/o, follow up as needed. Qualifiers: Site of cellulitis: extremity Site of cellulitis of extremity: lower extremity Laterality: left Qualified Code(s): L03.116 - Cellulitis of left lower limb History of Present Illness HPI: Ms. Mcclain is a 58 year old female with hypertension and diabetes who developed atraumatic painful erythema and swelling of her left lower extremity about 4 days ago. Initially felt generalized malaise, N/V and fatigue as well as decreased urine output. She denies associated fever, chills, shortness of breath. She was admitted for left leg cellulitis and started on IV antibiotics. Symptoms have improved since admission. Had elevated CK and orthopedics was consulted. Past Med Surg Social Fam HX - Past Medical History Medical history: diabetes, hypertension, other Psychiatric history: no psych history - Social History Smoking Status: Current some day smoker Smokeless Tobacco Status: No Alcohol use: none Drug use: none Medications and Allergies Aspirin [Adult Aspirin] 81 mg PO DAILY 10/20/18 [History] Metformin HCl [Glucophage] 1,000 mg PO BID 10/20/18 [History] GlipiZIDE [Glucotrol] 5 mg PO DAILY 10/21/18 [History] Lisinopril/Hydrochlorothiazide [Zestoretic 20-25 mg Tablet] 1 tab PO DAILY 10/21/18 [History] Allergy/AdvReac Type Severity Reaction Status Date / Time No Known Allergies Allergy Verified 10/20/18 20:40 All Systems Reviewed: The remainder of the systems were reviewed and are negative except as noted in HPI. Physical Exam - Constitutional Vitals: Temp Pulse Resp BP Pulse Ox 99.1 F 89 16 145/71 94 10/23/18 06:26 10/23/18 06:26 10/23/18 06:26 10/23/18 06:26 10/23/18 06:26 Exam: Consult Exam: Constitutional -Vitals reviewed -The patient is well developed and well nourished. Psychiatric -The patient is fully alert and oriented x 3. Respiratory: -Respiratory effort normal Abdomen: -Soft abdomen -Non tender -Non distended: Left upper extremity: -No deformities. The overlying skin is intact. No obvious signs of acute trauma. -No tenderness to palpation throughout. -No significant pain with passive motion of the shoulder, elbow, wrist, and fingers within the limits of the bed. -Able to make an "OK" sign, cross the index and long fingers, and extend the thumb. -Sensation grossly intact to light touch throughout the median, radial, and ulnar distributions. -Radial pulse is present; Fingers have good capillary refill. Right upper extremity: -No deformities. The overlying skin is intact. No obvious signs of acute trauma. -No tenderness to palpation throughout. -No significant pain with passive motion of the shoulder, elbow, wrist, and fingers within the limits of the bed. -Able to make an "OK" sign, cross the index and long fingers, and extend the thumb. -Sensation grossly intact to light touch throughout the median, radial, and ulnar distributions. -Radial pulse is present; Fingers have good capillary refill. Left lower extremity: -No deformities. The overlying skin is intact. No obvious signs of acute trauma. -Minimal tenderness to palpation throughout. Erythema over the left leg within demarcation. No fluctuance or induration. -No pain with passive motion of the hip, knee, ankle, and toes within the limits of the bed. -No pain with passive stretch. Compartments soft and compressible. -Able to dorsiflex and plantarflex the ankle and toes. -Sensation is grossly intact to light touch throughout the sural, saphenous, superficial peroneal, and deep peroneal distributions. -Toes have good capillary refill. Results - Labs Result Diagrams: 10/23/18 04:53 10/23/18 04:53 Labs: Abnormal lab results WBC 13.1 K/mcL (4.3-11.1) H 10/22/18 03:49 RBC 2.87 M/mcL (3.82-4.97) L 10/23/18 04:53 Hgb 7.7 g/dL (11.5-15.4) L 10/23/18 04:53 Hct 23.8 % (35.3-44.9) L 10/23/18 04:53 MCV 82.9 fL (83.0-100.0) L 10/23/18 04:53 MCH 26.8 pg (28.0-33.3) L 10/23/18 04:53 Plt Count 103 K/mcL (140-400) L 10/21/18 09:23 Reticulocyte # 0.03 M/mcL (0.05-0.10) L 10/21/18 09:23 Band Neutrophils % 18.0 % (0-4) H 10/23/18 04:53 Neutrophils # 10.4 K/mcL (1.6-8.9) H 10/22/18 03:49 Platelet Estimate Slight Decrease (Normal) L 10/21/18 09:23 Percent Retic 0.9 % (1.6-2.8) L 10/21/18 09:23 Immature Retic Fraction 4.4 % (11.0-38.0) L 10/21/18 09:23 Retic Hgb Equivalent 22.9 pg (28.61-36.33) L 10/21/18 09:23 PT 12.2 Seconds (9.4-12.1) H 10/21/18 09:23 VBG pCO2 31 mmHg (41-51) L 10/20/18 20:44 VBG pO2 62 mmHg (25-50) H 10/20/18 20:44 VBG HCO3 20 mEq/L (21-27) L 10/20/18 20:44 Sodium 135 mEq/L (136-145) L 10/22/18 03:49 Potassium 3.3 mEq/L (3.5-5.1) L 10/22/18 03:49 Chloride 108 mEq/L (98-107) H 10/23/18 04:53 Carbon Dioxide 20 mEq/L (23-29) L 10/23/18 04:53 BUN 24 mg/dL (6-20) H 10/23/18 04:53 Creatinine 1.23 mg/dL (0.60-1.20) H 10/22/18 14:33 Est GFR ( Amer) 58 (> 60) L 10/23/18 04:53 Est GFR (Non-Af Amer) 48 (> 60) L 10/23/18 04:53 Glucose 138 mg/dL (70-105) H 10/21/18 14:35 POC Glucose 131 mg/dL (70-99) H 10/21/18 20:26 Calcium 8.0 mg/dL (8.6-10.3) L 10/23/18 04:53 Iron 10 mcg/dL (50-170) L 10/21/18 09:23 % Saturation 5 % (15-50) L 10/21/18 09:23 Transferrin 137 mg/dL (203-362) L 10/21/18 09:23 Ferritin 825 ng/mL (10-120) H 10/21/18 09:23 Creatine Kinase 1853 Units/L (30-223) H 10/23/18 04:53 Urine Clarity Cloudy (Clear) A 10/20/18 20:42 Urine Bilirubin Small (Negative) H 10/20/18 20:42 Ur Leukocyte Esterase Moderate (Negative) H 10/20/18 20:42 Urine Microscopic WBC 5-15 per hpf (0-3) H 10/20/18 20:42 Ur Squamous Epith Cells Many per lpf (None-Few) H 10/20/18 20:42 Urine Yeast Few per hpf (None Seen) H 10/20/18 20:42 Ur Culture Indicated? YES (NO) A 10/20/18 20:42 H & H 10/23/18 Range/Units 04:53 Hgb 7.7 L (11.5-15.4) g/dL Hct 23.8 L (35.3-44.9) % All other labs normal. - Diagnostic results Knee CT: report reviewed, image reviewed (Cellulitis with no abscess or fluid collection) Consult Discharge Plan - Plan Referrals: Christine Mart, [employer]ER [Primary Care Provider] -
[2018-10-23] MEDS: Insulin LISPRO 300 UNITS/3 ML VIAL SQ SCH ×4 (08:46→20:12)
[2018-10-23] MEDS: Aspirin Enteric Coated 81 MG Tablet PO SCH (08:47)
[2018-10-23] MEDS: traMADol 50 MG TABLET PO PRN (08:47)
--- NOTE | 2018-10-23 11:25 | Internal Med Progress Note ---
Hospitalist Progress Note - Encounter Date of Encounter: 10/23/18 Time of Encounter: 11:22 - Subjective Interval History: Seen and examined today. Patient denies any acute nutrition consult at this time. 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 Continue IV antibiotics. - Exam Vitals: Temp Pulse Resp BP Pulse Ox 98.2 F 86 16 149/73 96 10/23/18 11:01 10/23/18 11:01 10/23/18 11:01 10/23/18 11:10/23/18 11:01 Exam: General: A & O 3, In no acute distress HENNT: PERRLA. Head atraumatic and makes supple CVS S1 and S2 regular, no murmur RS: Clear to air entry bilaterally, no wheeze, no crackles Abdomen: Soft and nontender. Bowel sounds normal 4 Extremities: LLW erythma has reduced in size. Initially patient had erythma up to left knee and now it has decreased in size. Warm to touch. Nontender. Neurology: Cranial 2 through 12 normal. Motor strength 5/5 bilaterally. Sensation intact - Assessment and Plan (1) Cellulitis Current Visit: Yes Status: Acute Assessment and Plan: Continue IV antibiotic including vancomycin and cefepime. Continue hydration. Patient's WBC count has trended down to 9.9. We will continue current antibiotic since on exam erythema at LLE has reduced since admission. We will m onitor. Patient's admission CT scan was negative. Orthopedic was consulted for possible compartment syndrome. At this time based on exam compartment syndrome is less likely. Continue medical management. No surgical intervention needed. (2) Rhabdomyolysis Current Visit: Yes Status: Acute Assessment and Plan: Patient's CK level is trending up. We will administer bolus this morning. We will increase the fluid rate to 200 mL per hour. We will monitor kidney function and CK level will repeat lab at 2 pm. CK level is an 1800s today (3) HTN (hypertension) Current Visit: Yes Status: Acute Assessment and Plan: We will continue to monitor. Lisinopril has been held due to DISHA (4) Acute kidney injury Current Visit: Yes Status: Resolved Assessment and Plan: Continue hydration and monitoring kidney function. Trended down to within normal limit. (5) Diabetes Current Visit: Yes Status: Acute Assessment and Plan: Hold metformin and continue insulin regimen. - Time Spent with Patient Total time spent is greater than 50% in coordination of care (as documented) at patient's floor/unit and/or counseling patient: 25 - 35 minutes Plan of Care Discussed with: patient Internal Medicine: Result - Labs CBC & Chem 7: 10/23/18 04:53 10/23/18 04:53 Labs: Short CBC 10/23/18 Range/Units 04:53 WBC 9.9 (4.3-11.1) K/mcL Hgb 7.7 L (11.5-15.4) g/dL Hct 23.8 L (35.3-44.9) % Plt Count 148 (140-400) K/mcL Neutrophils # 8.0 (1.6-8.9) K/mcL BMP 10/22/18 10/23/18 14:33 04:53 Sodium 137 138 Potassium 3.7 3.9 Chloride 108 H 108 H Carbon Dioxide 21 L 20 L BUN 28 H 24 H Creatinine 1.23 H 1.17 Glucose 81 88 Calcium 7.8 L 8.0 L - ABG Interpretation ABG results: PT/INR, D-dimer PT 12.2 Seconds (9.4-12.1) H 10/21/18 09:23 - Impressions Impressions Retroperitoneum Ultrasound 10/22/18 11:30 IMPRESSION: Unremarkable ultrasound of the kidneys. D/ / Govind Link MD / Govind Link MD Interpreting Provider: Govind Link MD Consult Discharge Plan - Plan Referrals: Christine Mart, FIRE TRUCK DRIVER [Primary Care Provider] - (1) Cellulitis Qualifiers: Site of cellulitis: extremity Site of cellulitis of extremity: lower extremity Laterality: left Qualified Code(s): L03.116 - Cellulitis of left lower limb (5) Diabetes Qualifiers: Diabetes mellitus type: type 2 Diabetes mellitus usp insulin use: without internet researcher use Diabetes mellitus complication status: without co mplication Qualified Code(s): E11.9 - Type 2 diabetes mellitus without com plications
[2018-10-23 14:16] LABS: Hematocrit 25.2 % (35.3-44.9); Hemoglobin 8.1 g/dL (11.5-15.4); Mean Corpuscular HGB Conc 32.1 g/dL (31.6-35.5); Mean Corpuscular Hemoglobin 26.5 pg (28.0-33.3); Mean Corpuscular Volume 82.4 fL (83.0-100.0); Mean Platelet Volume 9.6 fL (9.4-12.4); Platelet Count 166 K/mcL (140-400); Red Blood Count 3.06 M/mcL (3.82-4.97); Red Cell Distribution Width 13.9 % (11.5-14.5); White Blood Count 10.8 K/mcL (4.3-11.1)
[2018-10-23 14:56] LABS: Eosinophils # 0.2 K/mcL (0.0-0.6); Lymphocytes # 1.3 K/mcL (0.6-4.6); Monocytes # 0.9 K/mcL (0.0-1.3); Neutrophils # 8.4 K/mcL (1.6-8.9)
[2018-10-23 14:57] LABS: Platelet Estimate Normal (Normal)
[2018-10-23 14:59] LABS: BUN/Creatinine Ratio 19 (6-26); Blood Urea Nitrogen 21 mg/dL (6-20); Carbon Dioxide 21 mEq/L (23-29); Chloride 108 mEq/L (98-107); Creatine Kinase 2682 Units/L (30-223); Glucose 104 mg/dL (70-105); Osmolality,Calculated 287 (280-300); Potassium 3.7 mEq/L (3.5-5.1); Sodium 137 mEq/L (136-145); eGFR For African Americans > 60 (> 60); eGFR For Non-African Americans 50 (> 60)
[2018-10-23] MEDS: Acetaminophen 325 MG TABLET PO PRN (17:09)
[2018-10-24] MEDS: 0.9 % Sodium Chloride 1,000 ML IVC SCH ×4 (03:39→23:25)
[2018-10-24] MEDS: Acetaminophen 325 MG TABLET PO PRN ×3 (03:39→22:43)
[2018-10-24] MEDS: Cefepime HCl 2,000 MG in Water for inj. (sterile) 20 ML IVP SCH ×2 (05:45→17:46)
[2018-10-24] MEDS: *HR* Heparin 5,000 UNIT/ML VIAL SQ SCH ×2 (05:45→17:48)
[2018-10-24 07:04] LABS: Basophils % 0.2 %; Eosinophils # 0.2 K/mcL (0.0-0.6); Hematocrit 22.8 % (35.3-44.9); Hemoglobin 7.3 g/dL (11.5-15.4); Lymphocytes % 9.9 %; Mean Corpuscular Hemoglobin 26.4 pg (28.0-33.3); Mean Corpuscular Volume 82.6 fL (83.0-100.0); Mean Platelet Volume 9.6 fL (9.4-12.4); Monocytes # 0.7 K/mcL (0.0-1.3); Neutrophils # 7.7 K/mcL (1.6-8.9); Platelet Count 187 K/mcL (140-400); Red Blood Count 2.76 M/mcL (3.82-4.97); Segmented Neutrophils % 77.9 %; White Blood Count 9.9 K/mcL (4.3-11.1)
[2018-10-24 07:41] LABS: BUN/Creatinine Ratio 19 (6-26); Blood Urea Nitrogen 19 mg/dL (6-20); Carbon Dioxide 19 mEq/L (23-29); Chloride 112 mEq/L (98-107); Creatine Kinase 2498 Units/L (30-223); Glucose 79 mg/dL (70-105); Osmolality,Calculated 289 (280-300); Potassium 3.6 mEq/L (3.5-5.1); Sodium 139 mEq/L (136-145); eGFR For African Americans > 60 (> 60); eGFR For Non-African Americans 57 (> 60)
[2018-10-24] MEDS: Insulin LISPRO 300 UNITS/3 ML VIAL SQ SCH ×4 (08:12→21:25)
[2018-10-24] MEDS: Aspirin Enteric Coated 81 MG Tablet PO SCH (09:40)
--- NOTE | 2018-10-24 13:20 | Nephrology Consult Note ---
Date of Encounter: 10/24/18 Time of Encounter: 13:19 Assessment and Plan (1) Rhabdomyolysis Current Visit: Yes Status: Acute CK is 2682 today. Previous was 2498. Continue IVF. Qualifiers: Rhabdomyolysis type: non-traumatic Qualified Code(s): M62.82 - Rhabdomyolysis (2) Cellulitis Current Visit: Yes Status: Acute Per primary. Qualifiers: Site of cellulitis: extremity Site of cellulitis of extremity: lower extremity Laterality: left Qualified Code(s): L03.116 - Cellulitis of left lower limb (3) HTN (hypertension) Current Visit: Yes Status: Acute Stable, 142/54. Qualifiers: Qualified Code(s): I10 - Essential (primary) hypertension (4) Acute kidney injury Current Visit: Yes Status: Resolved Resolved, at baseline. Avoid nephrotoxins and renal dose. Strict I/O's. Daily weights. (5) Dyspnea Current Visit: Yes Status: Acute Per primary. Suggested bronchodilator. Qualifiers: Qualified Code(s): R06.00 - Dyspnea, unspecified History of Present Illness - Reason for Consult Consult date: 10/24/18 Requesting physician: Awilda Payne - Chief Complaint multiple complaints - History of Present Illness Ms. Mcclain is a 58 year old female who presented to ED on 10/20/18 for LLE swelling. She c/o of tenderness and erythema to LLE, increased thirst and decreased urination that started on 10/18/18. PMH: DM and HTN. Pt also c/o of dysuria and dark colored urine. Overall the paient is feeling much better, other than shortness of breath. Denies chest pain. Admits to shortness of breath. Denies nausea, vomiting diarrhea. She did have one episode of emesis at home before coming to ED. Patient initially had an DISHA, but has since resolved. CK is still elevated at 2498, peaked at 2682. There is concern for rhabdomyolisis. DISHA was most likely related to dehydration and rhabdomyolisis. No history of CKD. Admits to of HD with sister, she is unsure why she was placed on HD, she is still living. Denies etoh or illicit drug us. Lives at home with . No chronic use of NSAIDS. Past Med Surg Social Fam HX - Past Medical History Medical history: diabetes, hypertension, other Psychiatric history: no psych history - Social History Smoking Status: Current some day smoker Smokeless Tobacco Status: No Alcohol use: none Drug use: none Medications and Allergies Aspirin [Adult Aspirin] 81 mg PO DAILY 10/20/18 [History] Metformin HCl [Glucophage] 1,000 mg PO BID 10/20/18 [History] GlipiZIDE [Glucotrol] 5 mg PO DAILY 10/21/18 [History] Lisinopril/Hydrochlorothiazide [Zestoretic 20-25 mg Tablet] 1 tab PO DAILY 10/21/18 [History] Allergy/AdvReac Type Severity Reaction Status Date / Time No Known Allergies Allergy Verified 10/20/18 20:40 Review of Systems All Systems review (narrative): The remainder of the systems are negative. Constitutional: fatigue, no chills, no fever(s) Cardiovascular: dyspnea, dyspnea on exertion, no chest pain, no edema Respiratory: wheezing, no cough, no hemoptysis Gastrointestinal: no diarrhea, no nausea, no vomiting Genitourinary Female: no hematuria, no urinary frequency, no urinary hesitancy, no urinary urgency Exam - Vital Signs Vital signs: Initial Vital Signs Temp Pulse Resp BP Pulse Ox 97.6 F 101 16 129/70 96 10/20/18 19:39 10/20/18 19:39 10/20/18 19:39 10/20/18 19:39 10/20/18 19:39 Vital Signs - Last 8 Hours Temp Pulse Resp BP Pulse Ox 10/24/18 11:30 98.0 F 83 15 142/54 99 10/24/18 07:47 98.1 F 76 17 150/68 97 Intake and Output 10/23/18 10/24/18 10/24/18 23:59 07:59 15:59 Intake Total 1020 / 4540 1000 / 1999 1000 / 2000 Output Total 575 / 1875 1175 / 1175 Balance 445 / 2665 -175 / 825 1000 / 825 Intake: IV Fluids 1020 / 4290 1000 / 2000 1000 / 2000 0.9 % Sodium Chloride 1,000 ML 1000 / 3000 1000 / 2000 1000 / 2000 @ 200 mls/hr IVC .Q5H [facility] Rx#: [id number] Maxipime 2,000 MG In Water for inj. (sterile) 20 ML @ 300 mls/ hr IVP Q12HR [facility] Rx#:[id number] Oral 0 / 250 0 / 0 Output: Catheter 575 / 1575 1175 / 1175 Other: Stool Size Moderate Stool Consistency soft Stool Color Brown # Bowel Movements 1 0 Weight 91.4 kg Blood Glucose* 80 84 85 Patient Weight 10/24/18 23:59 Weight 91.4 kg - General Appearance General appearance: well-developed, well-nourished EENT: ATNC, hearing intact, vision intact Neck: supple Respiratory: clear Cardiology: edema (generalized edema noted to LLE.), normal S1, normal S2 Gastrointestinal: normoactive bowel sounds, no tenderness, no guarding Additional Comments: Erythema noted to LLE, outlined by previous nursing staff and providers, is receding. No open areas noted. Neurologic: alert and oriented x3 Musculoskeletal: no deformities, erythema (Noted to LLE. ) Psychiatric: mood/affect appropriate, cooperative Results - Lab Results 10/24/18 05:24 10/24/18 05:24 Most recent lab results 10/24/18 05:24 Calcium 8.0 L Consult Discharge Plan - Plan Referrals: Christine Mart, WOOD PLANER [Primary Care Provider] -
--- NOTE | 2018-10-24 15:57 | Internal Med Progress Note ---
Hospitalist Progress Note - Encounter Date of Encounter: 10/24/18 Time of Encounter: 08:15 - Subjective Interval History: No acute events overnight. Patient states that she feels much better and has no pain in left lower extremity. Also denies fever and chills. - Exam Vitals: Temp Pulse Resp BP Pulse Ox 36.9 C 87 15 143/71 98 10/24/18 14:05 10/24/18 14:05 10/24/18 14:05 10/24/18 14:05 10/24/18 14:05 Exam: General: A & O 3, In no acute distress HENNT: PERRLA. Head atraumatic and neck supple CVS S1 and S2 regular, no murmur RS: Clear to air entry bilaterally, no wheeze, no crackles Abdomen: Soft and nontender. Bowel sounds normal 4 Extremities: Left leg is edematous and erythematous. However nontender and not warm to touch. Skin: Blisters ovbserved on dorsum of left foot. Neurology: Cranial 2 through 12 normal. Motor strength 5/5 bilaterally. Sen sation intact - Assessment and Plan (1) Rhabdomyolysis Current Visit: Yes Status: Acute Assessment and Plan: Creatinine Kinase now at 249 a down trend from yesterday (2682) Will continue IVF Patient will be discharged if she records 2 more consecutive downtrending values. (2) Cellulitis Current Visit: Yes Status: Acute Assessment and Plan: Patient is improving. Left leg remains erythematous and moderately swollen but not warm or tender. Continue antibiotics (3) Acute kidney injury Current Visit: Yes Status: Resolved Assessment and Plan: Creatinine has normalized. Will continue to hydrate and monitor. (4) Diabetes Current Visit: Yes Status: Acute Assessment and Plan: Hold metformin and continue insulin regimen. (5) HTN (hypertension) Current Visit: Yes Status: Acute Assessment and Plan: We will continue to monitor. Lisinopril has been held due to DISHA DVT Prophylaxis: SQ Heparin - Time Spent with Patient Total time spent is greater than 50% in coordination of care (as documented) at patient's floor/unit and/or counseling patient: Internal Medicine: Result - Labs CBC & Chem 7: 10/24/18 05:24 10/24/18 05:24 Labs: Short CBC 10/24/18 Range/Units 05:24 WBC 9.9 (4.3-11.1) K/mcL Hgb 7.3 L (11.5-15.4) g/dL Hct 22.8 L (35.3-44.9) % Plt Count 187 (140-400) K/mcL Neutrophils # 7.7 (1.6-8.9) K/mcL BMP 10/24/18 05:24 Sodium 139 Potassium 3.6 Chloride 112 H Carbon Dioxide 19 L BUN 19 Creatinine 1.00 Glucose 79 Calcium 8.0 L - ABG Interpretation ABG results: PT/INR, D-dimer PT 12.2 Seconds (9.4-12.1) H 10/21/18 09:23 Consult Discharge Plan - Plan Referrals: Christine Mart, BUMPER MACHINE OPERATOR [Primary Care Provider] - (1) Rhabdomyolysis Qualifiers: Rhabdomyolysis type: non-traumatic Qualified Code(s): M62.82 - Rhabdomyolysis (2) Cellulitis Qualifiers: Site of cellulitis: extremity Site of cellulitis of extremity: lower extremity Laterality: left Qualified Code(s): L03.116 - Cellulitis of left lower limb (4) Diabetes Qualifiers: Diabetes mellitus type: type 2 Diabetes mellitus termite control service representative insulin use: without senior care use Diabetes mellitus complication status: without complication Qualified Code(s): E11.9 - Type 2 diabetes mellitus without complications (5) HTN (hypertension) Qualifiers: Qualified Code(s): I10 - Essential (primary) hypertension
[2018-10-25 04:44] LABS: Basophils # 0.1 K/mcL (0.0-0.2); Basophils % 0.5 %; Eosinophils # 0.2 K/mcL (0.0-0.6); Eosinophils % 1.6 %; Hematocrit 24.5 % (35.3-44.9); Hemoglobin 7.9 g/dL (11.5-15.4); Immature Granulocytes % 4.5 % (0-4); Lymphocytes # 1.1 K/mcL (0.6-4.6); Lymphocytes % 9.6 %; Mean Corpuscular HGB Conc 32.2 g/dL (31.6-35.5); Mean Corpuscular Hemoglobin 26.3 pg (28.0-33.3); Mean Corpuscular Volume 81.7 fL (83.0-100.0); Mean Platelet Volume 9.2 fL (9.4-12.4); Monocytes # 0.6 K/mcL (0.0-1.3); Monocytes % 5.3 %; Neutrophils # 8.6 K/mcL (1.6-8.9); Platelet Count 270 K/mcL (140-400); Segmented Neutrophils % 78.5 %
[2018-10-25 05:04] LABS: BUN/Creatinine Ratio 18 (6-26); Blood Urea Nitrogen 16 mg/dL (6-20); Calcium 8.1 mg/dL (8.6-10.3); Carbon Dioxide 18 mEq/L (23-29); Chloride 113 mEq/L (98-107); Glucose 96 mg/dL (70-105); Osmolality,Calculated 289 (280-300); Potassium 3.3 mEq/L (3.5-5.1); Sodium 139 mEq/L (136-145); eGFR For African Americans > 60 (> 60); eGFR For Non-African Americans > 60 (> 60)
[2018-10-25] MEDS: *HR* Heparin 5,000 UNIT/ML VIAL SQ SCH ×2 (05:04→17:57)
[2018-10-25] MEDS: 0.9 % Sodium Chloride 1,000 ML IVC SCH ×4 (07:03→18:05)
[2018-10-25] MEDS: Cefepime HCl 2,000 MG in Water for inj. (sterile) 20 ML IVP SCH ×2 (07:04→17:58)
[2018-10-25] MEDS: Insulin LISPRO 300 UNITS/3 ML VIAL SQ SCH ×4 (08:13→21:28)
[2018-10-25] MEDS: Aspirin Enteric Coated 81 MG Tablet PO SCH (08:16)
--- NOTE | 2018-10-25 12:43 | Internal Med Progress Note ---
Hospitalist Progress Note - Encounter Date of Encounter: 10/25/18 Time of Encounter: 08:45 - Subjective Interval History: No acute events overnight. Patient requesting to go home since he feels well. - Exam Vitals: Temp Pulse Resp BP Pulse Ox 36.7 C 65 16 163/71 94 10/25/18 10:23 10/25/18 10:23 10/25/18 10:23 10/25/18 10:23 10/25/18 10:23 Exam: General: A & O 3, In no acute distress HENNT: PERRLA. Head atraumatic and neck supple CVS S1 and S2 regular, no murmur RS: Clear to air entry bilaterally, no wheeze, no crackles Abdomen: Soft and nontender. Bowel sounds normal 4 Extremities: Left leg looks more swollen and tense than yesterday and is warm. Remains erythematous but not tender. Pateint is able to kiln remover her toes. Difficult to palpate doralis pedis pulse due to degree of swelling. Sensation in left foot remains intact. Skin: Blisters ovbserved on dorsum of left foot. Neurology: Cranial 2 through 12 normal. Motor strength 5/5 bilaterally. Sensation intact - Assessment and Plan (1) Rhabdomyolysis Current Visit: Yes Status: Acute Assessment and Plan: Creatine Kinase now in 3000s. Was 3836 last night but dropped to 3059 this morning. Creatinine however remains wnl Patient will benefit from a compartment pressure check. Inform orthopedic surgeon (2) Cellulitis Current Visit: Yes Status: Acute Assessment and Plan: Left leg is more swollen and tense but patient denies tenderness. Continue antibiotics (3) Diabetes Current Visit: Yes Status: Acute Assessment and Plan: Accuchecks Hold metformin and continue insulin regimen. (4) HTN (hypertension) Current Visit: Yes Status: Acute Assessment and Plan: We will continue to monitor. Lisinopril has been held due to DISHA DVT Prophylaxis: SQ Heparin - Time Spent with Patient Total time spent is greater than 50% in coordination of care (as documented) at patient's floor/unit and/or counseling patient: Internal Medicine: Result - Labs CBC & Chem 7: 10/25/18 04:02 10/25/18 04:02 Labs: Short CBC 10/25/18 Range/Units 04:02 WBC 11.0 (4.3-11.1) K/mcL Hgb 7.9 L (11.5-15.4) g/dL Hct 24.5 L (35.3-44.9) % Plt Count 270 (140-400) K/mcL Neutrophils # 8.6 (1.6-8.9) K/mcL BMP 10/25/18 04:02 Sodium 139 Potassium 3.3 L Chloride 113 H Carbon Dioxide 18 L BUN 16 Creatinine 0.88 Glucose 96 Calcium 8.1 L - ABG Interpretation ABG results: PT/INR, D-dimer PT 12.2 Seconds (9.4-12.1) H 10/21/18 09:23 Consult Discharge Plan - Plan Referrals: Christine Mart, CASING BLOWER [Primary Care Provider] - (1) Rhabdomyolysis Qualifiers: Rhabdomyolysis type: non-traumatic Qualified Code(s): M62.82 - Rhabdomyolysis (2) Cellulitis Qualifiers: Site of cellulitis: extremity Site of cellulitis of extremity: lower extremity Laterality: left Qualified Code(s): L03.116 - Cellulitis of left lower limb (3) Diabetes Qualifiers: Diabetes mellitus type: type 2 Diabetes mellitus long-term insulin use: without intermediate teacher use Diabetes mellitus complication status: without complication Qualified Code(s): E11.9 - Type 2 diabetes mellitus without complications (4) HTN (hypertension) Qualifiers: Qualified Code(s): I10 - Essential (primary) hypertension
[2018-10-25] MEDS: *HR* OxyCODONE Immed Rel 5 MG TABLET PO PRN (12:53)
[2018-10-25] MEDS: traMADol 50 MG TABLET PO PRN (18:10)
[2018-10-25] MEDS ORDERED: Furosemide 20 MG/2 ML VIAL IVP ONE (18:18)
[2018-10-26 06:05] LABS: Basophils % 0.4 %; Eosinophils # 0.2 K/mcL (0.0-0.6); Eosinophils % 2.1 %; Hematocrit 24.1 % (35.3-44.9); Hemoglobin 7.8 g/dL (11.5-15.4); Immature Granulocytes % 5.1 % (0-4); Lymphocytes # 1.2 K/mcL (0.6-4.6); Lymphocytes % 10.6 %; Mean Corpuscular HGB Conc 32.4 g/dL (31.6-35.5); Mean Corpuscular Hemoglobin 26.7 pg (28.0-33.3); Mean Corpuscular Volume 82.5 fL (83.0-100.0); Mean Platelet Volume 9.1 fL (9.4-12.4); Monocytes # 0.7 K/mcL (0.0-1.3); Monocytes % 6.6 %; Neutrophils # 8.3 K/mcL (1.6-8.9); Platelet Count 302 K/mcL (140-400); Red Blood Count 2.92 M/mcL (3.82-4.97); Red Cell Distribution Width 14.1 % (11.5-14.5); Segmented Neutrophils % 75.2 %
[2018-10-26] MEDS: Cefepime HCl 2,000 MG in Water for inj. (sterile) 20 ML IVP SCH (06:07)
[2018-10-26] MEDS: *HR* Heparin 5,000 UNIT/ML VIAL SQ SCH (06:07)
[2018-10-26] MEDS: *HR* OxyCODONE Immed Rel 5 MG TABLET PO PRN (06:10)
[2018-10-26 06:29] LABS: BUN/Creatinine Ratio 14 (6-26); Blood Urea Nitrogen 12 mg/dL (6-20); Carbon Dioxide 18 mEq/L (23-29); Chloride 111 mEq/L (98-107); Glucose 100 mg/dL (70-105); Osmolality,Calculated 290 (280-300); Potassium 3.5 mEq/L (3.5-5.1); Sodium 140 mEq/L (136-145); eGFR For African Americans > 60 (> 60); eGFR For Non-African Americans > 60 (> 60)
[2018-10-26 07:26] LABS: Platelet Estimate Normal (Normal)
[2018-10-26] MEDS: Insulin LISPRO 300 UNITS/3 ML VIAL SQ SCH (08:16)
--- NOTE | 2018-10-26 08:20 | Orthopedic Consult Note ---
Date of Encounter: 10/25/18 Time of Encounter: 17:00 Assessment and Plan (1) Wound of left foot Current Visit: Yes Status: Acute (2) Cellulitis Current Visit: Yes Status: Acute Qualifiers: Site of cellulitis: extremity Site of cellulitis of extremity: lower extremity Laterality: left Qualified Code(s): L03.116 - Cellulitis of left lower limb History of Present Illness Chief complaint: Left lower leg cellulitis HPI: Ms. Mcclain is a 58 year old female who presented to [facility] with concerns regarding her left foot with blisters and redness after being up. She also concerns regarding dysuria and decreased urine output. She does have a known history of diabetes. She admits that she has a sister that she use to get cellulitis a lot and had to wrap her feet. She said that this looks very similar to what her sister had in the past. Ms. Mcclain was seen by Dr. Lozano earlier this week after her primary team was concerned about patient having possible compartment syndrome. Dr. Lozano thought did not find signs or symptoms of this issue at that time. Her primary team reached out orthopedics again as patients CK has continued to rise throughout this week despite fluid management. On exam patient is resting comfortably in bed. She is noted to have 4 x 4's, ABDs, Kerlix, and Coban and applied to her left lower extremity from foot to knee. This dressing was taken down revealing erythematous foot and ankle with 2+ pitting edema from the toes to proximal and mid irizarry. There are 3 large blisters measuring approximately 2 cm in size on the dorsal aspect of the left foot. These do not appear grossly infected and are filled with serous fluid. This area is tender to palpation. Pulses are very difficult to palpate secondary to the degree of swelling. Toe motion is full and intact ankle motion is full and intact as allowed by the swelling noted to her lower leg. Knee motion is full and intact. Strength appears at baseline compared to the right lower extremity. Sensation is intact. Patient is noted to have fluids running 200 mL's. Adaptic was applied to patient's dorsal foot. Then 10 pack a 4 x 4's was applied over top of the dorsal foot. Kerlix was then applied from the toes to just below the knee. 2 Lex wraps were then applied overlapping for gentle compression from the toes to the base of the knee. Patient's labs and vitals were reviewed. Patient's creatinine kinase is ranged from 1358 upon admission as high as 3836 on 10/24. Today, 10/25, patient's creatinine kinase did decrease to approximately 3000. Her renal function has returned to normal limits throughout her hospital course. Patient is noted to have received multiple doses of Vancomycin. At this time I do not see any symptoms or signs of compartment syndrome. I do not have a complete explanation for the rise and patient's creatinine kinase. Per patient she does report that the redness to her left lower shoulder and he has improved during her hospital stay. She reports a family history of peripheral vascular and cellulitic issues in her sister. At this point, patient's hospital course was reviewed with Dr. Payne her hospitalist. We would recommend continuation of antibiotics for her left lower show any cellulitis. Concern regarding her dorsal foot wounds should be considered for consultation with wound care. She should have at least once daily dressing changes until weeping of the tissue and blistering has resolved. I recommend avoiding Philippe at this point as patient does have significant swelling and concern for banding. Would recommend using Lex wraps instead. Thank you for this consultation. Please consider reaching out with any other concerns or questions regarding patient's orthopedic care. Past Med Surg Social Fam HX - Past Medical History Medical history: diabetes, hypertension, other Psychiatric history: no psych history - Social History Smoking Status: Current some day smoker Smokeless Tobacco Status: No Alcohol use: none Drug use: none Medications and Allergies Aspirin [Adult Aspirin] 81 mg PO DAILY 10/20/18 [History] Metformin HCl [Glucophage] 1,000 mg PO BID 10/20/18 [History] GlipiZIDE [Glucotrol] 5 mg PO DAILY 10/21/18 [History] Lisinopril/Hydrochlorothiazide [Zestoretic 20-25 mg Tablet] 1 tab PO DAILY 10/21/18 [History] Allergy/AdvReac Type Severity Reaction Status Date / Time No Known Allergies Allergy Verified 10/20/18 20:40 All Systems Reviewed: The remainder of the systems were reviewed and are negative Physical Exam - Constitutional Vitals: Temp Pulse Resp BP Pulse Ox 98.0 F 83 19 184/69 98 10/26/18 07:54 10/26/18 07:54 10/26/18 07:54 10/26/18 07:54 10/26/18 07:54 Results - Labs Result Diagrams: 10/26/18 05:32 10/26/18 05:32 Labs: Abnormal lab results WBC 13.1 K/mcL (4.3-11.1) H 10/22/18 03:49 RBC 2.92 M/mcL (3.82-4.97) L 10/26/18 05:32 Hgb 7.8 g/dL (11.5-15.4) L 10/26/18 05:32 Hct 24.1 % (35.3-44.9) L 10/26/18 05:32 MCV 82.5 fL (83.0-100.0) L 10/26/18 05:32 MCH 26.7 pg (28.0-33.3) L 10/26/18 05:32 Plt Count 103 K/mcL (140-400) L 10/21/18 09:23 MPV 9.1 fL (9.4-12.4) L 10/26/18 05:32 Reticulocyte # 0.03 M/mcL (0.05-0.10) L 10/21/18 09:23 Immature Gran % 5.1 % (0-4) H 10/26/18 05:32 Band Neutrophils % 18.0 % (0-4) H 10/23/18 13:51 Neutrophils # 10.4 K/mcL (1.6-8.9) H 10/22/18 03:49 Platelet Estimate Slight Decrease (Normal) L 10/21/18 09:23 Percent Retic 0.9 % (1.6-2.8) L 10/21/18 09:23 Immature Retic Fraction 4.4 % (11.0-38.0) L 10/21/18 09:23 Retic Hgb Equivalent 22.9 pg (28.61-36.33) L 10/21/18 09:23 PT 12.2 Seconds (9.4-12.1) H 10/21/18 09:23 VBG pCO2 31 mmHg (41-51) L 10/20/18 20:44 VBG pO2 62 mmHg (25-50) H 10/20/18 20:44 VBG HCO3 20 mEq/L (21-27) L 10/20/18 20:44 Sodium 135 mEq/L (136-145) L 10/22/18 03:49 Potassium 3.3 mEq/L (3.5-5.1) L 10/25/18 04:02 Chloride 111 mEq/L (98-107) H 10/26/18 05:32 Carbon Dioxide 18 mEq/L (23-29) L 10/26/18 05:32 BUN 21 mg/dL (6-20) H 10/23/18 13:51 Creatinine 1.23 mg/dL (0.60-1.20) H 10/22/18 14:33 Est GFR ( Amer) 58 (> 60) L 10/23/18 04:53 Est GFR (Non-Af Amer) 57 (> 60) L 10/24/18 05:24 Glucose 138 mg/dL (70-105) H 10/21/18 14:35 POC Glucose 114 mg/dL (70-99) H 10/25/18 21:05 Calcium 8.0 mg/dL (8.6-10.3) L 10/26/18 05:32 Iron 10 mcg/dL (50-170) L 10/21/18 09:23 % Saturation 5 % (15-50) L 10/21/18 09:23 Transferrin 137 mg/dL (203-362) L 10/21/18 09:23 Ferritin 825 ng/mL (10-120) H 10/21/18 09:23 Creatine Kinase 3059 Units/L (30-223) H 10/25/18 09:20 Urine Clarity Cloudy (Clear) A 10/20/18 20:42 Urine Bilirubin Small (Negative) H 10/20/18 20:42 Ur Leukocyte Esterase Moderate (Negative) H 10/20/18 20:42 Urine Microscopic WBC 5-15 per hpf (0-3) H 10/20/18 20:42 Ur Squamous Epith Cells Many per lpf (None-Few) H 10/20/18 20:42 Urine Yeast Few per hpf (None Seen) H 10/20/18 20:42 Ur Culture Indicated? YES (NO) A 10/20/18 20:42 Stool Occult Blood Positive (Negative) A 10/23/18 22:36 Vancomycin Trough 13 mcg/mL (5-10) H 10/23/18 11:33 H & H 10/26/18 Range/Units 05:32 Hgb 7.8 L (11.5-15.4) g/dL Hct 24.1 L (35.3-44.9) % All other labs normal. Consult Discharge Plan - Plan Referrals: Christine Mart, THERESA [Primary Care Provider] -
[2018-10-26 09:21] VITALS: BP 135/71
[2018-10-26] MEDS: Aspirin Enteric Coated 81 MG Tablet PO SCH (09:23)
--- NOTE | 2018-10-26 09:59 | Discharge Summary ---
- NOTES TO OUTPATIENT PROVIDER Notes to Outpatient Provider: Patient needs further outpatient workup for anemia after inection resolves. Date of Encounter: 10/26/18 Time of Encounter: 09:55 - Discharge Diagnosis (1) Cellulitis Priority: Primary Status: Acute Qualifiers: Site of cellulitis: extremity Site of cellulitis of extremity: lower extremity Laterality: left Qualified Code(s): L03.116 - Cellulitis of left lower limb (2) Rhabdomyolysis Priority: Secondary Status: Acute Qualifiers: Rhabdomyolysis type: non-traumatic Qualified Code(s): M62.82 - Rhabdomyol ysis (3) Diabetes Priority: Secondary Status: Acute Qualifiers: Diabetes mellitus type: type 2 Diabetes mellitus longterm insulin use: without longterm use Diabetes mellitus complication status: without complication Qualified Code(s): E11.9 - Type 2 diabetes mellitus without complications (4) HTN (hypertension) Priority: Secondary Status: Acute Qualifiers: Qualified Code(s): I10 - Essential (primary) hypertension Hospital course: Ms. Mcclain is a 58 year old female who presented with LLE cellulitis complicated by rhabdomyolysis and DISHA. Renal function has normalized and infection is gradually clearing. She will be discharged on both Cephalexin and bactrim for 7 more days. To f/u with her PCP and the wound clinic. Discharge discussed with: patient, nurse - Time Spent with Patient Total time spent providing and/or coordinating discharge services: Time spent: Greater than 30 minutes (35) - Discharge Medications Prescriptions: New Sulfamethoxazole/Trimeth DS [Bactrim Ds] 1 each PO BID 7 Days #14 tablet cephALEXin [Keflex] 500 mg PO BID 7 Days #14 capsule OxyCODONE Immed Rel [Roxicodone 5 MG] 10 mg PO Q6H PRN 5 Days #20 tablet PRN Reason: Severe Pain Continued Metformin HCl [Glucophage] 1,000 mg PO BID Aspirin [Adult Aspirin] 81 mg PO DAILY Lisinopril/Hydrochlorothiazide [Zestoretic 20-25 mg Tablet] 1 tab PO DAILY GlipiZIDE [Glucotrol] 5 mg PO DAILY Home Medications: Aspirin [Adult Aspirin] 81 mg PO DAILY 10/20/18 [History] Metformin HCl [Glucophage] 1,000 mg PO BID 10/20/18 [History] GlipiZIDE [Glucotrol] 5 mg PO DAILY 10/21/18 [History] Lisinopril/Hydrochlorothiazide [Zestoretic 20-25 mg Tablet] 1 tab PO DAILY 10/21/18 [History] OxyCODONE Immed Rel [Roxicodone 5 MG] 10 mg PO Q6H PRN 5 Days #20 tablet 10/26/18 [Rx] Sulfamethoxazole/Trimeth DS [Bactrim Ds] 1 each PO BID 7 Days #14 tablet 10/26/18 [Rx] cephALEXin [Keflex] 500 mg PO BID 7 Days #14 capsule 10/26/18 [Rx] Allergies/Adverse Reactions: Allergy/AdvReac Type Severity Reaction Status Date / Time No Known Allergies Allergy Verified 10/20/18 20:40 Date of admission: 10/22/18 06:48 Primary care physician: Christine Mart CNP Consults: 10/22/18 18:22 Consult to Orthopedic Surgery [CONS] Stat Consulting Provider: [facility] Reason for Consult: Increase CK level with concerns of possible compartment syndrome Call Completed: Yes 10/23/18 16:58 Consult to Nephrology [CONS] Stat Consulting Provider: [facility]/SWETHA/REGAN/KHANG Reason for Consult: Rhabdomyolysis Call Completed: Yes - Constitutional Vitals: Temp Pulse Resp BP Pulse Ox 36.7 C 83 19 135/71 98 10/26/18 07:54 10/26/18 07:54 10/26/18 07:54 10/26/18 09:20 10/26/18 07:54 Exam: GENERAL: Not in distress. Alert and Oriented HEENT: EOMI, PERRLA MOUTH: Good oral hygiene NECK:No JVD, No lymph nodes. CHEST AND LUNGS: Normal breath sounds, no wheezes or crackles HEART: S1 and S2 normal, no murmurs ABDOMEN: Soft, nontender, no organomegaly SKIN: Normal color, no rahses, no lesions EXTREMITIES: LLE in clean dressing. NEUROLOGICAL: Normal cognition, normal motor and sensory exam. - Patient Status Disposition: Home, Self-Care Condition: Good Overall status at discharge: patient is progressing back to baseline - Discharge Instructions Follow Up With: Christine Mart CNP [Primary Care Provider] - - Diet and Activity Activity: increase activity as tolerated Diet: diabetic diet
[2018-10-26] MEDS ORDERED: Sulfamethoxazole/Trimeth DS 1 EACH TABLET PO SCH ×2 (11:45→21:00)
[2018-10-26] MEDS ORDERED: Aminoglycoside Consult 1 EACH MC ONE (12:45)
[2018-10-26] MEDS ORDERED: cephALEXin 500 MG CAPSULE PO SCH (21:00)
== END 2018-10-26 12:46 | disposition home or self-care (01) | DRG 603 ==
LOC: EMEROOARM 19:34 → 3ANU 19:34 → SUATTDRO 21:54 → 3ANU 22:30 → SUATTDRO 10-22 06:48
PROVIDERS: ADMIT Internal Medicine; ATTEND Internal Medicine

== ENCOUNTER 2019-01-13 04:31 | Inpatient (IN) ==
[2019-01-13] MEDS ORDERED: 0.9 % Sodium Chloride 1,000 ML ONE ×3 (04:35→16:24)
[2019-01-13] MEDS ORDERED: Furosemide 40 MG/4 ML VIAL IVP ONE (04:44)
[2019-01-13] MEDS ORDERED: *HR* Etomidate 20 MG/10 ML AMPUL IVP ONE ×2 (04:47→10:12)
[2019-01-13] MEDS ORDERED: *HR* Rocuronium Bromide 50 MG/5 ML VIAL IVP ONE (04:48)
[2019-01-13 05:03] LABS: Basophils # 0.2 K/mcL (0.0-0.2); Basophils % 0.7 %; Eosinophils # 0.4 K/mcL (0.0-0.6); Eosinophils % 1.8 %; Hematocrit 35.4 % (35.3-44.9); Hemoglobin 11.2 g/dL (11.5-15.4); Immature Granulocytes % 0.8 % (0-4); Lymphocytes % 50.8 %; Mean Corpuscular HGB Conc 31.6 g/dL (31.6-35.5); Mean Corpuscular Hemoglobin 25.2 pg (28.0-33.3); Mean Corpuscular Volume 79.7 fL (83.0-100.0); Mean Platelet Volume 9.5 fL (9.4-12.4); Monocytes # 1.4 K/mcL (0.0-1.3); Monocytes % 5.8 %; Neutrophils # 9.5 K/mcL (1.6-8.9); Platelet Count 326 K/mcL (140-400); Red Blood Count 4.44 M/mcL (3.82-4.97); Red Cell Distribution Width 13.4 % (11.5-14.5); Segmented Neutrophils % 40.1 %; White Blood Count 23.7 K/mcL (4.3-11.1)
[2019-01-13] MEDS: FentaNYL (PF) 1,000 MCG in 0.9 % Sodium Chloride 80 ML IVC SCH ×2 (05:10→14:59)
[2019-01-13 05:22] LABS: Alanine Aminotransferase 16 Units/L (7-52); Albumin 4.2 g/dL (3.5-5.7); Albumin/Globulin Ratio 1.1 (1.1-2.2); Alkaline Phosphatase 122 Units/L (34-104); Aspartate Amino Transferase 16 Units/L (13-39); BUN/Creatinine Ratio 13 (6-26); Bilirubin,Direct 0.1 mg/dL (0.0-0.2); Bilirubin,Indirect 0.3 mg/dL (0.0-1.0); Bilirubin,Total 0.4 mg/dL (0.3-1.0); Blood Urea Nitrogen 18 mg/dL (6-20); Calcium 9.2 mg/dL (8.6-10.3); Carbon Dioxide 20 mEq/L (23-29); Chloride 103 mEq/L (98-107); Globulin 3.8 g/dL (2.4-3.5); Glucose 324 mg/dL (70-105); Osmolality,Calculated 298 (280-300); Potassium 4.3 mEq/L (3.5-5.1); Sodium 137 mEq/L (136-145); Troponin I < 0.03 ng/mL (< 0.04); eGFR For African Americans 49 (> 60); eGFR For Non-African Americans 41 (> 60)
[2019-01-13 05:38] LABS: Platelet Estimate Normal (Normal)
[2019-01-13 05:47] LABS: ABG Base Excess -5 mEq/L (-2 to 3); ABG HCO3 24 mEq/L (21-27); ABG Oxygen Saturation 100 % (95-98); ABG PCO2 63 mmHg (35-45); ABG PH 7.18 pH Units (7.32-7.45); ABG PO2 272 mmHg (85-104); ABG TCO2 26 mEq/L (20-26); Blood Gas Modality ASSIST CONTROL; Blood Gas VT 450 cc
[2019-01-13] MEDS ORDERED: *HR* Midazolam HCl 2 MG/2 ML VIAL IVP ONE ×2 (06:19→06:20)
[2019-01-13] MEDS ORDERED: *HR* Midazolam HCl 5 MG/5 ML VIAL IVP ONE (06:21)
[2019-01-13 06:27] LABS: Bilirubin,Urine Negative (Negative); Blood,Urine Trace (Negative); Clarity,Urine Clear (Clear); Color,Urine Yellow (Yellow); Glucose,Urine (UA) 250 mg/dL (Normal); Ketones,Urine Negative (Negative); Leukocyte Esterase,Urine Negative (Negative); Nitrite,Urine Negative (Negative); PH,Urine 5.5 pH Units (5.0-8.0); Protein,Urine 100 mg/dL (Neg-Trace); Urobilinogen,Urine Normal (Normal)
[2019-01-13 06:29] LABS: Bacteria,Urine None Seen per hpf (None-Few); Hyaline Casts,Urine None Seen per lpf (None-Few); Squamous Epithelial Cell,Urine Moderate per lpf (None-Few); WBC,Urine 0-3 per hpf (0-3)
[2019-01-13 06:31] LABS: Creatine Kinase 87 Units/L (30-223)
[2019-01-13] MEDS: Nitroglycerin 25 MG/250 ML INFUS..BTL IVC SCH ×2 (06:50→23:20)
[2019-01-13] MEDS ORDERED: *HR* Midazolam HCl 2 MG/2 ML VIAL IVP STA (06:55)
[2019-01-13] MEDS ORDERED: Naloxone 0.4 MG/ML INJ IVP PRN (08:20)
[2019-01-13] MEDS ORDERED: Artificial Tears SOLN 15 ML BOTTLE BOTH EYES PRN (08:20)
[2019-01-13] MEDS ORDERED: *HR* Dextrose 50 % in Water (Syg) 50 ML SYRINGE IVP PRN (08:31)
[2019-01-13] MEDS ORDERED: Dextrose Gel 15 GM/37.5 ML TUBE PO PRN ×2 (08:31)
[2019-01-13] MEDS ORDERED: D5% in Water 1,000 ML IVC PRN (08:31)
[2019-01-13 08:43] LABS: ABG Base Excess -3 mEq/L (-2 to 3); ABG HCO3 23 mEq/L (21-27); ABG Oxygen Saturation 99 % (95-98); ABG PCO2 43 mmHg (35-45); ABG PH 7.33 pH Units (7.32-7.45); ABG PO2 124 mmHg (85-104); ABG TCO2 24 mEq/L (20-26); Blood Gas VT 450 cc
[2019-01-13 08:43] LABS: Basophils % 0.3 %; Eosinophils % 0.2 %; Hematocrit 31.7 % (35.3-44.9); Hemoglobin 10.2 g/dL (11.5-15.4); Immature Granulocytes % 0.6 % (0-4); Lymphocytes # 1.3 K/mcL (0.6-4.6); Lymphocytes % 11.1 %; Mean Corpuscular HGB Conc 32.2 g/dL (31.6-35.5); Mean Corpuscular Hemoglobin 25.6 pg (28.0-33.3); Mean Corpuscular Volume 79.4 fL (83.0-100.0); Mean Platelet Volume 9.1 fL (9.4-12.4); Monocytes % 8.2 %; Neutrophils # 9.5 K/mcL (1.6-8.9); Platelet Count 217 K/mcL (140-400); Red Blood Count 3.99 M/mcL (3.82-4.97); Red Cell Distribution Width 13.4 % (11.5-14.5); Segmented Neutrophils % 79.6 %
[2019-01-13] MEDS ORDERED: Aspirin Enteric Coated 81 MG Tablet PO SCH (09:00)
[2019-01-13 09:03] LABS: Calcium 8.6 mg/dL (8.6-10.3)
[2019-01-13] MEDS ORDERED: Aminoglycoside Consult 1 EACH MC ONE (09:39)
[2019-01-13 09:43] LABS: Estimated Average Glucose 169 mg/dl
[2019-01-13 09:45] LABS: Troponin I 1.09 ng/mL (< 0.04)
[2019-01-13] MEDS: Chlorhexidine Rinse 15 ML MOUTHWASH MM SCH ×2 (09:53→20:33)
[2019-01-13] MEDS: Aspirin 81 MG TAB.CHEW PO SCH (09:53)
[2019-01-13] MEDS: Pantoprazole 40 MG VIAL IVP SCH (09:53)
[2019-01-13] MEDS: Piperacillin/Tazobactam 3.375 GM in 0.9 % Sodium Chloride Mini Bag 100 ML IVPB SCH ×3 (09:54→23:40)
[2019-01-13] MEDS ORDERED: *HR* Heparin 5,000 UNIT/ML VIAL IVP PRN ×2 (10:05)
[2019-01-13] MEDS ORDERED: *HR* Heparin 5,000 UNIT/ML VIAL IVP ONE (10:05)
[2019-01-13] MEDS ORDERED: *HR* Rocuronium Bromide 100 MG/10 ML VIAL IVC ONE (10:12)
[2019-01-13] MEDS: Heparin 25,000 UNIT/250 ML D5W 25,000 UNIT/250 ML IV.SOLN IVC SCH (11:15)
[2019-01-13 11:17] LABS: Hematocrit 28.1 % (35.3-44.9); Hemoglobin 9.1 g/dL (11.5-15.4); Mean Corpuscular HGB Conc 32.4 g/dL (31.6-35.5); Mean Corpuscular Hemoglobin 25.4 pg (28.0-33.3); Mean Corpuscular Volume 78.5 fL (83.0-100.0); Mean Platelet Volume 9.2 fL (9.4-12.4); Platelet Count 194 K/mcL (140-400); Red Blood Count 3.58 M/mcL (3.82-4.97); Red Cell Distribution Width 13.4 % (11.5-14.5); White Blood Count 9.4 K/mcL (4.3-11.1)
[2019-01-13] MEDS: Artificial Tears SOLN 15 ML BOTTLE BOTH EYES SCH ×4 (11:17→23:41)
[2019-01-13 11:27] LABS: Prothrombin Time 11.7 Seconds (9.4-12.1)
[2019-01-13] MEDS ORDERED: Perflutren Lipid Microsphere 1.3 ML in 0.9 % Sodium Chloride 8.7 ML IVP ONE (11:40)
[2019-01-13] MEDS: Insulin LISPRO 300 UNITS/3 ML VIAL SQ SCH ×3 (12:41→23:40)
[2019-01-13] MEDS ORDERED: *HR* Heparin 5,000 UNIT/ML VIAL SQ SCH (14:00)
[2019-01-13] MEDS: Furosemide 40 MG/4 ML VIAL IVP SCH (15:20)
[2019-01-13] MEDS ORDERED: ISOVUE-370 200 ML INFUS..BTL ONE (15:38)
[2019-01-13] MEDS ORDERED: Heparin 1,000 UNITS/500 mL 500 ML ONE ×2 (15:38→16:00)
[2019-01-13] MEDS ORDERED: Nitroglycerin 1,000 MCG/10 ML VIAL IV ONE (15:38)
[2019-01-13] MEDS ORDERED: *HR* Heparin 10,000 UNIT/10 ML VIAL ONE (15:38)
[2019-01-13] MEDS ORDERED: *HR* Adenosine 6 MG/2 ML VIAL IVP ONE (15:54)
[2019-01-13] MEDS: Ipratropium/Albuterol Neb 3 ML IH SCH (23:18)
[2019-01-14] MEDS: FentaNYL (PF) 1,000 MCG in 0.9 % Sodium Chloride 80 ML IVC SCH ×3 (02:58→21:02)
[2019-01-14] MEDS: Artificial Tears SOLN 15 ML BOTTLE BOTH EYES SCH ×6 (03:15→23:00)
[2019-01-14] MEDS: Ipratropium/Albuterol Neb 3 ML IH SCH ×5 (03:35→19:38)
[2019-01-14 04:55] LABS: ABG Base Excess -3 mEq/L (-2 to 3); ABG HCO3 24 mEq/L (21-27); ABG Oxygen Saturation 91 % (95-98); ABG PCO2 51 mmHg (35-45); ABG PH 7.29 pH Units (7.32-7.45); ABG PO2 68 mmHg (85-104); ABG TCO2 26 mEq/L (20-26); Blood Gas Modality AF; Blood Gas VT 500 cc
[2019-01-14] MEDS: Insulin LISPRO 300 UNITS/3 ML VIAL SQ SCH ×4 (05:09→23:02)
[2019-01-14 05:46] LABS: Basophils % 0.4 %; Eosinophils # 0.1 K/mcL (0.0-0.6); Eosinophils % 1.1 %; Hematocrit 29.6 % (35.3-44.9); Hemoglobin 9.4 g/dL (11.5-15.4); Immature Granulocytes % 0.4 % (0-4); Lymphocytes % 10.4 %; Mean Corpuscular HGB Conc 31.8 g/dL (31.6-35.5); Mean Corpuscular Hemoglobin 25.6 pg (28.0-33.3); Mean Corpuscular Volume 80.7 fL (83.0-100.0); Mean Platelet Volume 8.9 fL (9.4-12.4); Monocytes # 0.5 K/mcL (0.0-1.3); Monocytes % 5.9 %; Neutrophils # 7.5 K/mcL (1.6-8.9); Platelet Count 174 K/mcL (140-400); Red Blood Count 3.67 M/mcL (3.82-4.97); Red Cell Distribution Width 13.8 % (11.5-14.5); Segmented Neutrophils % 81.8 %; White Blood Count 9.2 K/mcL (4.3-11.1)
[2019-01-14 05:56] LABS: INR 1.1; Prothrombin Time 12.3 Seconds (9.4-12.1)
[2019-01-14 06:07] LABS: Chol/HDL Ratio 2.5 (0-4.9); Phosphorous 5.3 mg/dL (2.7-4.5)
[2019-01-14 06:09] LABS: Albumin 3.3 g/dL (3.5-5.7); Albumin/Globulin Ratio 1.1 (1.1-2.2); Bilirubin,Direct 0.2 mg/dL (0.0-0.2); Bilirubin,Indirect 0.3 mg/dL (0.0-1.0); Bilirubin,Total 0.5 mg/dL (0.3-1.0); Calcium 8.4 mg/dL (8.6-10.3); Magnesium 1.6 mg/dL (1.6-2.6); Potassium 4.3 mEq/L (3.5-5.1); Total Protein 6.3 g/dL (6.4-8.9)
[2019-01-14] MEDS: Piperacillin/Tazobactam 3.375 GM in 0.9 % Sodium Chloride Mini Bag 100 ML IVPB SCH ×3 (08:13→23:00)
[2019-01-14] MEDS: Aspirin 81 MG TAB.CHEW PO SCH (08:13)
[2019-01-14] MEDS: Pantoprazole 40 MG VIAL IVP SCH (08:13)
[2019-01-14] MEDS: Chlorhexidine Rinse 15 ML MOUTHWASH MM SCH ×2 (08:13→20:02)
[2019-01-14] MEDS: Heparin 25,000 UNIT/250 ML D5W 25,000 UNIT/250 ML IV.SOLN IVC SCH (11:52)
[2019-01-14 11:57] LABS: ABG Base Excess -2 mEq/L (-2 to 3); ABG HCO3 24 mEq/L (21-27); ABG Oxygen Saturation 96 % (95-98); ABG PCO2 43 mmHg (35-45); ABG PH 7.35 pH Units (7.32-7.45); ABG PO2 88 mmHg (85-104); ABG TCO2 25 mEq/L (20-26); Blood Gas Modality ASSIST CONTROL; Blood Gas VT 450 cc
[2019-01-14] MEDS: Acetaminophen 325 MG TABLET PO PRN (19:04)
[2019-01-14] MEDS: Nitroglycerin 25 MG/250 ML INFUS..BTL IVC SCH (19:05)
[2019-01-15] MEDS: Ipratropium/Albuterol Neb 3 ML IH SCH ×6 (00:27→19:44)
[2019-01-15] MEDS: Acetaminophen 325 MG TABLET PO PRN ×2 (01:38→16:07)
[2019-01-15] MEDS: Artificial Tears SOLN 15 ML BOTTLE BOTH EYES SCH ×6 (03:09→23:47)
[2019-01-15 03:18] LABS: Basophils % 0.4 %; Eosinophils # 0.1 K/mcL (0.0-0.6); Eosinophils % 0.8 %; Hematocrit 24.6 % (35.3-44.9); Immature Granulocytes % 0.4 % (0-4); Lymphocytes # 0.8 K/mcL (0.6-4.6); Lymphocytes % 11.6 %; Mean Corpuscular HGB Conc 31.3 g/dL (31.6-35.5); Mean Corpuscular Hemoglobin 25.2 pg (28.0-33.3); Mean Corpuscular Volume 80.7 fL (83.0-100.0); Mean Platelet Volume 9.4 fL (9.4-12.4); Monocytes # 0.7 K/mcL (0.0-1.3); Neutrophils # 5.6 K/mcL (1.6-8.9); Platelet Count 148 K/mcL (140-400); Red Blood Count 3.05 M/mcL (3.82-4.97); Red Cell Distribution Width 14.1 % (11.5-14.5); Segmented Neutrophils % 77.8 %; White Blood Count 7.2 K/mcL (4.3-11.1)
[2019-01-15 03:20] LABS: Hemoglobin 7.7 g/dL (11.5-15.4)
[2019-01-15 03:35] LABS: Albumin 2.8 g/dL (3.5-5.7); Albumin/Globulin Ratio 1.1 (1.1-2.2); Bilirubin,Total 0.6 mg/dL (0.3-1.0); Calcium 7.8 mg/dL (8.6-10.3); Globulin 2.6 g/dL (2.4-3.5); Magnesium 1.6 mg/dL (1.6-2.6); Potassium 3.7 mEq/L (3.5-5.1); Total Protein 5.4 g/dL (6.4-8.9)
[2019-01-15 03:40] LABS: Troponin I 2.61 ng/mL (< 0.04)
[2019-01-15 04:42] LABS: ABG Base Excess -1 mEq/L (-2 to 3); ABG HCO3 25 mEq/L (21-27); ABG Oxygen Saturation 96 % (95-98); ABG PCO2 47 mmHg (35-45); ABG PH 7.34 pH Units (7.32-7.45); ABG PO2 86 mmHg (85-104); ABG TCO2 27 mEq/L (20-26); Blood Gas Modality ASSIST CONTROL; Blood Gas VT 450 cc
[2019-01-15] MEDS: Insulin LISPRO 300 UNITS/3 ML VIAL SQ SCH ×4 (05:00→23:47)
[2019-01-15] MEDS: Heparin 25,000 UNIT/250 ML D5W 25,000 UNIT/250 ML IV.SOLN IVC SCH (07:18)
[2019-01-15 07:50] LABS: Hemoglobin 8.3 g/dL (11.5-15.4)
[2019-01-15] MEDS: Piperacillin/Tazobactam 3.375 GM in 0.9 % Sodium Chloride Mini Bag 100 ML IVPB SCH ×3 (08:19→23:47)
[2019-01-15] MEDS: Aspirin 81 MG TAB.CHEW PO SCH (08:22)
[2019-01-15] MEDS: Pantoprazole 40 MG VIAL IVP SCH (08:22)
[2019-01-15] MEDS: Chlorhexidine Rinse 15 ML MOUTHWASH MM SCH ×2 (08:22→20:37)
[2019-01-15] MEDS: Furosemide 40 MG/4 ML VIAL IVP SCH ×2 (08:22→16:07)
[2019-01-15] MEDS: *HR* Heparin 5,000 UNIT/ML VIAL SQ SCH (18:20)
[2019-01-15] MEDS: Nitroglycerin 25 MG/250 ML INFUS..BTL IVC SCH (20:36)
[2019-01-16] MEDS: Ipratropium/Albuterol Neb 3 ML IH SCH ×7 (00:27→23:51)
[2019-01-16] MEDS: Insulin LISPRO 300 UNITS/3 ML VIAL SQ SCH ×4 (05:56→20:07)
[2019-01-16] MEDS: Artificial Tears SOLN 15 ML BOTTLE BOTH EYES SCH ×2 (05:56→07:28)
[2019-01-16] MEDS: *HR* Heparin 5,000 UNIT/ML VIAL SQ SCH ×3 (05:58→18:35)
[2019-01-16] MEDS: Furosemide 40 MG/4 ML VIAL IVP SCH (07:26)
[2019-01-16] MEDS: Pantoprazole 40 MG VIAL IVP SCH (07:26)
[2019-01-16] MEDS: Chlorhexidine Rinse 15 ML MOUTHWASH MM SCH (07:26)
[2019-01-16] MEDS: Aspirin 81 MG TAB.CHEW PO SCH (07:27)
[2019-01-16] MEDS: Piperacillin/Tazobactam 3.375 GM in 0.9 % Sodium Chloride Mini Bag 100 ML IVPB SCH (07:27)
[2019-01-16 07:46] LABS: Basophils % 0.5 %; Eosinophils # 0.2 K/mcL (0.0-0.6); Eosinophils % 2.3 %; Hematocrit 24.8 % (35.3-44.9); Hemoglobin 7.7 g/dL (11.5-15.4); Immature Granulocytes % 0.3 % (0-4); Lymphocytes % 13.6 %; Mean Corpuscular Hemoglobin 24.9 pg (28.0-33.3); Mean Corpuscular Volume 80.3 fL (83.0-100.0); Mean Platelet Volume 8.6 fL (9.4-12.4); Monocytes # 0.6 K/mcL (0.0-1.3); Monocytes % 8.5 %; Neutrophils # 5.6 K/mcL (1.6-8.9); Platelet Count 129 K/mcL (140-400); Red Blood Count 3.09 M/mcL (3.82-4.97); Red Cell Distribution Width 13.9 % (11.5-14.5); Segmented Neutrophils % 74.8 %; White Blood Count 7.5 K/mcL (4.3-11.1)
[2019-01-16] MEDS ORDERED: Aminoglycoside Consult 1 EACH MC ONE (07:47)
[2019-01-16 08:05] LABS: Albumin/Globulin Ratio 0.9 (1.1-2.2); Bilirubin,Total 0.7 mg/dL (0.3-1.0); Calcium 8.5 mg/dL (8.6-10.3); Globulin 3.2 g/dL (2.4-3.5); Magnesium 1.7 mg/dL (1.6-2.6); Phosphorous 4.9 mg/dL (2.7-4.5); Potassium 3.5 mEq/L (3.5-5.1); Total Protein 6.2 g/dL (6.4-8.9)
[2019-01-16] MEDS: Nitroglycerin 25 MG/250 ML INFUS..BTL IVC SCH (13:14)
[2019-01-16] MEDS ORDERED: Acetaminophen 325 MG TABLET PO PRN (17:41)
[2019-01-16] MEDS ORDERED: *HR* Dextrose 50 % in Water (Syg) 50 ML SYRINGE IVP PRN (17:41)
[2019-01-16] MEDS ORDERED: Dextrose Gel 15 GM/37.5 ML TUBE PO PRN ×2 (17:41)
[2019-01-16] MEDS ORDERED: D5% in Water 1,000 ML IVC PRN (17:41)
[2019-01-16] MEDS ORDERED: FentaNYL (PF) 1,000 MCG in 0.9 % Sodium Chloride 80 ML IVC SCH (17:41)
[2019-01-16] MEDS ORDERED: Naloxone 0.4 MG/ML INJ IVP PRN (17:41)
[2019-01-16] MEDS ORDERED: Nitroglycerin 25 MG/250 ML INFUS..BTL IVC SCH (17:41)
[2019-01-16 17:44] LABS: Hematocrit 27.1 % (35.3-44.9); Hemoglobin 8.9 g/dL (11.5-15.4)
[2019-01-16] MEDS ORDERED: Insulin LISPRO 300 UNITS/3 ML VIAL SQ SCH (21:00)
[2019-01-16 23:35] LABS: Hematocrit 24.9 % (35.3-44.9); Hemoglobin 7.9 g/dL (11.5-15.4)
[2019-01-17] MEDS: Ipratropium/Albuterol Neb 3 ML IH SCH ×5 (03:56→19:56)
[2019-01-17] MEDS: *HR* Heparin 5,000 UNIT/ML VIAL SQ SCH ×2 (05:30→17:03)
[2019-01-17] MEDS ORDERED: Furosemide 40 MG TABLET PO SCH (08:00)
[2019-01-17] MEDS: Insulin LISPRO 300 UNITS/3 ML VIAL SQ SCH ×4 (08:49→21:54)
[2019-01-17] MEDS: Pantoprazole 40 MG VIAL IVP SCH (08:49)
[2019-01-17] MEDS: Furosemide 40 MG TABLET PO SCH ×2 (08:49→17:03)
[2019-01-17] MEDS: Aspirin 81 MG TAB.CHEW PO SCH (08:49)
[2019-01-17 09:43] LABS: Basophils % 0.6 %; Eosinophils # 0.2 K/mcL (0.0-0.6); Eosinophils % 2.4 %; Hematocrit 25.1 % (35.3-44.9); Hemoglobin 8.3 g/dL (11.5-15.4); Immature Granulocytes % 0.5 % (0-4); Lymphocytes # 1.1 K/mcL (0.6-4.6); Lymphocytes % 17.2 %; Mean Corpuscular HGB Conc 33.1 g/dL (31.6-35.5); Mean Corpuscular Hemoglobin 25.5 pg (28.0-33.3); Mean Corpuscular Volume 77.2 fL (83.0-100.0); Mean Platelet Volume 8.7 fL (9.4-12.4); Monocytes # 0.5 K/mcL (0.0-1.3); Monocytes % 8.1 %; Neutrophils # 4.7 K/mcL (1.6-8.9); Platelet Count 169 K/mcL (140-400); Red Blood Count 3.25 M/mcL (3.82-4.97); Red Cell Distribution Width 13.6 % (11.5-14.5); Segmented Neutrophils % 71.2 %; White Blood Count 6.6 K/mcL (4.3-11.1)
[2019-01-17 09:56] LABS: Calcium 8.7 mg/dL (8.6-10.3); Potassium 3.4 mEq/L (3.5-5.1)
[2019-01-18] MEDS: Ipratropium/Albuterol Neb 3 ML IH SCH ×4 (00:11→10:33)
[2019-01-18] MEDS: *HR* Heparin 5,000 UNIT/ML VIAL SQ SCH (05:22)
[2019-01-18 05:24] LABS: Basophils % 0.7 %; Eosinophils # 0.1 K/mcL (0.0-0.6); Eosinophils % 3.1 %; Immature Granulocytes % 0.7 % (0-4); Lymphocytes # 1.1 K/mcL (0.6-4.6); Lymphocytes % 23.6 %; Mean Corpuscular Hemoglobin 24.9 pg (28.0-33.3); Mean Corpuscular Volume 77.9 fL (83.0-100.0); Mean Platelet Volume 8.6 fL (9.4-12.4); Monocytes # 0.5 K/mcL (0.0-1.3); Monocytes % 10.1 %; Neutrophils # 2.8 K/mcL (1.6-8.9); Platelet Count 166 K/mcL (140-400); Red Blood Count 3.21 M/mcL (3.82-4.97); Red Cell Distribution Width 13.4 % (11.5-14.5); Segmented Neutrophils % 61.8 %; White Blood Count 4.6 K/mcL (4.3-11.1)
[2019-01-18 05:48] LABS: Calcium 8.7 mg/dL (8.6-10.3); Magnesium 1.8 mg/dL (1.6-2.6); Potassium 3.2 mEq/L (3.5-5.1)
[2019-01-18 07:51] VITALS: BP 128/71
[2019-01-18] MEDS: Furosemide 40 MG TABLET PO SCH (08:52)
[2019-01-18] MEDS: Pantoprazole 40 MG VIAL IVP SCH (08:52)
[2019-01-18] MEDS: Insulin LISPRO 300 UNITS/3 ML VIAL SQ SCH (08:53)
[2019-01-18] MEDS: Aspirin 81 MG TAB.CHEW PO SCH (08:53)
== END 2019-01-18 11:52 | disposition home health service (06) | DRG 853 ==
LOC: EMEROOARM 04:31 → SUATTDRO 06:52 → ICNU 06:52 → 2ANU 01-16 14:06
PROVIDERS: ADMIT Internal Medicine; ATTEND Internal Medicine

== ENCOUNTER 2020-03-05 11:38 | Inpatient (IN) ==
[2020-03-05] MEDS ORDERED: Furosemide 40 MG/4 ML VIAL IVP ONE (11:44)
[2020-03-05 11:55] LABS: ABG Base Excess -8 mEq/L (-2 to 3); ABG HCO3 23 mEq/L (21-27); ABG Oxygen Saturation 95 % (95-98); ABG PCO2 80 mmHg (35-45); ABG PH 7.07 pH Units (7.32-7.45); ABG PO2 110 mmHg (85-104); ABG TCO2 26 mEq/L (20-26); Blood Gas Modality ST; Blood Gas VT 14 cc
[2020-03-05] MEDS ORDERED: Ipratropium/Albuterol Neb 3 ML IH ONE (11:58)
[2020-03-05] MEDS ORDERED: methylPREDNISolone 125 MG/2 ML VIAL IVP ONE (11:58)
[2020-03-05] MEDS ORDERED: methylPREDNISolone 125 MG/2 ML VIAL ONE (12:05)
[2020-03-05 12:38] LABS: Basophils # 0.1 K/mcL (0.0-0.2); Basophils % 0.8 %; Eosinophils # 0.4 K/mcL (0.0-0.6); Eosinophils % 1.9 %; Hematocrit 32.7 % (35.3-44.9); Hemoglobin 9.6 g/dL (11.5-15.4); Immature Granulocytes % 0.7 % (0-4); Lymphocytes # 6.8 K/mcL (0.6-4.6); Lymphocytes % 37.8 %; Mean Corpuscular HGB Conc 29.4 g/dL (31.6-35.5); Mean Corpuscular Hemoglobin 24.2 pg (28.0-33.3); Mean Corpuscular Volume 82.6 fL (83.0-100.0); Mean Platelet Volume 9.7 fL (9.4-12.4); Monocytes % 5.5 %; Neutrophils # 9.6 K/mcL (1.6-8.9); Platelet Count 310 K/mcL (140-400); Red Blood Count 3.96 M/mcL (3.82-4.97); Red Cell Distribution Width 13.3 % (11.5-14.5); Segmented Neutrophils % 53.3 %
[2020-03-05] MEDS ORDERED: Piperacillin/Tazobactam 3.375 GM in 0.9 % Sodium Chloride Mini Bag 100 ML IVPB ONE (12:46)
[2020-03-05] MEDS ORDERED: Vancomycin 1,500 MG/265 ML IV.SOLN IVPB STA (12:46)
[2020-03-05 12:59] LABS: VBG HCO3 22 mEq/L (21-27); VBG PCO2 50 mmHg (41-51); VBG PH 7.24 pH Units (7.32-7.42); VBG PO2 58 mmHg (25-50)
[2020-03-05 12:59] LABS: BUN/Creatinine Ratio 18 (6-26); Blood Urea Nitrogen 24 mg/dL (6-20); Calcium 8.8 mg/dL (8.6-10.3); Carbon Dioxide 18 mEq/L (23-29); Chloride 104 mEq/L (98-107); Glucose 332 mg/dL (70-105); Osmolality,Calculated 301 (280-300); Potassium 4.9 mEq/L (3.5-5.1); Sodium 137 mEq/L (136-145); Troponin I < 0.03 ng/mL (< 0.04); eGFR For African Americans 48 (> 60); eGFR For Non-African Americans 40 (> 60)
[2020-03-05 13:43] LABS: ABG Base Excess 0 mEq/L (-2 to 3); ABG HCO3 26 mEq/L (21-27); ABG Oxygen Saturation 100 % (95-98); ABG PCO2 47 mmHg (35-45); ABG PH 7.35 pH Units (7.32-7.45); ABG PO2 203 mmHg (85-104); ABG TCO2 27 mEq/L (20-26); Blood Gas Modality ST; Blood Gas VT 14 cc
[2020-03-05] MEDS ORDERED: Naloxone 0.4 MG/ML INJ IVP PRN (14:39)
[2020-03-05] MEDS ORDERED: Perflutren Lipid Microsphere 1.3 ML in 0.9 % Sodium Chloride 8.7 ML IVP PRN (14:43)
[2020-03-05] MEDS ORDERED: Dextrose Gel 15 GM/37.5 ML TUBE PO PRN ×2 (15:05)
[2020-03-05] MEDS ORDERED: *HR* Dextrose 50 % in Water (Vial) 50 ML VIAL IVP PRN (15:05)
[2020-03-05] MEDS ORDERED: D5% in Water 1,000 ML IVC PRN (15:05)
[2020-03-05 15:37] LABS: Magnesium 1.9 mg/dL (1.6-2.6); Phosphorous 5.4 mg/dL (2.7-4.5)
[2020-03-05 15:40] LABS: Adenovirus Not Detected (Not Detect); Bordetella Pertussis Not Detected (Not Detect); Chlamydophila pneumoniae Not Detected (Not Detect); Coronavirus 229E Not Detected (Not Detect); Coronavirus HKU1 Not Detected (Not Detect); Coronavirus NL63 Not Detected (Not Detect); Coronavirus OC43 Not Detected (Not Detect); Human Metapneumovirus Not Detected (Not Detect); Human Rhinovirus/Enterovirus Not Detected (Not Detect); Influenza A Subtype 2009 H1 Not Detected (Not Detect); Influenza B Not Detected (Not Detect); Mycoplasma pneumoniae Not Detected (Not Detect); Parainfluenza Virus 1 Not Detected (Not Detect); Parainfluenza Virus 2 Not Detected (Not Detect); Parainfluenza Virus 3 Not Detected (Not Detect); Parainfluenza Virus 4 Not Detected (Not Detect); Respiratory Syncytial Virus Not Detected (Not Detect); SARS-CoV-2 Not Detected (Not Detect)
[2020-03-05] MEDS ORDERED: Ipratropium/Albuterol Neb 3 ML IH SCH (16:00)
[2020-03-05] MEDS: carvediloL 25 MG TABLET PO SCH (18:39)
[2020-03-05] MEDS: Insulin LISPRO 300 UNITS/3 ML VIAL SUBQ SCH (18:39)
[2020-03-05] MEDS: *HR* Heparin 5,000 UNIT/ML VIAL SQ SCH (18:39)
[2020-03-05] MEDS: MethylPREDNISolone 40 MG/ML VIAL IVP SCH (18:41)
[2020-03-05] MEDS: Ipratropium 1 PUFF INHALER IH SCH ×2 (20:38→23:41)
[2020-03-05] MEDS: Piperacillin/Tazobactam 3.375 GM in 0.9 % Sodium Chloride Mini Bag 100 ML IVPB SCH (21:10)
[2020-03-05] MEDS: Gabapentin 400 MG CAPSULE PO SCH (21:10)
[2020-03-06] MEDS: MethylPREDNISolone 40 MG/ML VIAL IVP SCH ×3 (00:33→15:51)
[2020-03-06] MEDS: Ipratropium 1 PUFF INHALER IH SCH ×6 (04:19→23:36)
[2020-03-06] MEDS ORDERED: 0.9 % Sodium Chloride 250 ML ONE (04:49)
[2020-03-06] MEDS: Piperacillin/Tazobactam 3.375 GM in 0.9 % Sodium Chloride Mini Bag 100 ML IVPB SCH ×2 (05:00→14:19)
[2020-03-06] MEDS: *HR* Heparin 5,000 UNIT/ML VIAL SQ SCH (05:00)
[2020-03-06 06:23] LABS: Basophils % 0.1 %; Hematocrit 30.3 % (35.3-44.9); Hemoglobin 9.1 g/dL (11.5-15.4); Immature Granulocytes % 0.4 % (0-4); Lymphocytes # 0.7 K/mcL (0.6-4.6); Lymphocytes % 10.2 %; Mean Corpuscular Hemoglobin 23.9 pg (28.0-33.3); Mean Corpuscular Volume 79.7 fL (83.0-100.0); Mean Platelet Volume 9.6 fL (9.4-12.4); Monocytes # 0.1 K/mcL (0.0-1.3); Monocytes % 1.2 %; Platelet Count 219 K/mcL (140-400); Red Cell Distribution Width 13.5 % (11.5-14.5); Segmented Neutrophils % 88.1 %
[2020-03-06 06:28] LABS: White Blood Count 6.8 K/mcL (4.3-11.1)
[2020-03-06 06:41] LABS: Calcium 8.9 mg/dL (8.6-10.3); Potassium 4.5 mEq/L (3.5-5.1)
[2020-03-06] MEDS: Aspirin 81 MG TAB.CHEW PO SCH (07:38)
[2020-03-06] MEDS: lisinopriL 10 MG TABLET PO SCH (07:38)
[2020-03-06] MEDS: carvediloL 25 MG TABLET PO SCH ×2 (07:38→15:51)
[2020-03-06] MEDS: Gabapentin 400 MG CAPSULE PO SCH (07:38)
[2020-03-06] MEDS: Insulin LISPRO 300 UNITS/3 ML VIAL SUBQ SCH ×3 (07:39→15:59)
[2020-03-06] MEDS ORDERED: Furosemide 40 MG TABLET PO SCH (14:30)
[2020-03-06] MEDS: Furosemide 40 MG TABLET PO SCH (15:51)
[2020-03-06] MEDS ORDERED: Insulin DETEMIR 100 UNIT/ML X5UNITS SUBQ SCH (21:00)
[2020-03-07] MEDS: Ipratropium 1 PUFF INHALER IH SCH ×5 (04:04→15:21)
[2020-03-07] MEDS ORDERED: *HR* Enoxaparin 40 MG/0.4 ML SYRINGE SQ SCH (06:00)
[2020-03-07 06:52] LABS: Basophils % 0.1 %; Hematocrit 27.5 % (35.3-44.9); Hemoglobin 8.6 g/dL (11.5-15.4); Immature Granulocytes % 0.5 % (0-4); Lymphocytes # 0.9 K/mcL (0.6-4.6); Lymphocytes % 8.2 %; Mean Corpuscular HGB Conc 31.3 g/dL (31.6-35.5); Mean Corpuscular Hemoglobin 24.6 pg (28.0-33.3); Mean Corpuscular Volume 78.6 fL (83.0-100.0); Mean Platelet Volume 9.9 fL (9.4-12.4); Monocytes # 0.5 K/mcL (0.0-1.3); Monocytes % 4.5 %; Neutrophils # 9.7 K/mcL (1.6-8.9); Platelet Count 244 K/mcL (140-400); Segmented Neutrophils % 86.7 %
[2020-03-07 06:59] LABS: White Blood Count 11.2 K/mcL (4.3-11.1)
[2020-03-07 07:13] LABS: Calcium 8.3 mg/dL (8.6-10.3)
[2020-03-07] MEDS ORDERED: Insulin DETEMIR 100 UNIT/ML X5UNITS SUBQ ONE (08:53)
[2020-03-07] MEDS ORDERED: levoFLOXacin 750 MG TABLET PO SCH (09:00)
[2020-03-07] MEDS ORDERED: predniSONE 20 MG TABLET PO SCH (09:00)
[2020-03-07] MEDS: carvediloL 25 MG TABLET PO SCH (09:07)
[2020-03-07] MEDS: Aspirin 81 MG TAB.CHEW PO SCH (09:07)
[2020-03-07] MEDS: Furosemide 40 MG TABLET PO SCH (09:07)
[2020-03-07] MEDS: lisinopriL 10 MG TABLET PO SCH (09:07)
[2020-03-07] MEDS: Insulin LISPRO 300 UNITS/3 ML VIAL SUBQ SCH ×2 (09:24→12:59)
[2020-03-07 11:22] VITALS: BP 172/75
[2020-03-07] MEDS ORDERED: Insulin LISPRO 300 UNITS/3 ML VIAL SUBQ SCH ×2 (13:19→13:21)
== END 2020-03-07 15:53 | disposition home or self-care (01) | DRG 291 ==
LOC: EMEROOARM 11:38 → SUATTDRO 14:36 → 2NNU 14:36 → 2NENU 15:06 → 3BNU 03-06 13:44
PROVIDERS: ADMIT Student in an Organized Health Care Education/Training Program; ATTEND Student in an Organized Health Care Education/Training Program

== ENCOUNTER 2020-11-05 11:10 | Inpatient (IN) ==
[2020-11-05 14:57] LABS: Mean Corpuscular Hemoglobin 27.1 pg (28.0-33.3); Mean Corpuscular Volume 93.6 fL (83.0-100.0); Mean Platelet Volume 9.3 fL (9.4-12.4); Platelet Count 207 K/mcL (140-400); Red Cell Distribution Width 22.7 % (11.5-14.5)
[2020-11-05 15:00] LABS: Hematocrit 13.1 % (35.3-44.9); Hemoglobin 3.8 g/dL (11.5-15.4)
[2020-11-05 15:13] LABS: Potassium 4.3 mEq/L (3.5-5.1)
[2020-11-05] MEDS ORDERED: Naloxone 0.4 MG/ML INJ IVP PRN (16:04)
[2020-11-05] MEDS ORDERED: D5% in Water 1,000 ML IVC PRN (16:09)
[2020-11-05] MEDS ORDERED: Dextrose Gel 15 GM/37.5 ML TUBE PO PRN ×2 (16:09)
[2020-11-05] MEDS ORDERED: *HR* Dextrose 50 % in Water (Vial) 50 ML VIAL IVP PRN (16:09)
[2020-11-05] MEDS: Insulin LISPRO 300 UNITS/3 ML VIAL SUBQ SCH ×2 (17:03→20:18)
[2020-11-05] MEDS ORDERED: 0.9 % Sodium Chloride 500 ML ONE (17:27)
[2020-11-05] MEDS: 0.9 % Sodium Chloride 1,000 ML IVC SCH (17:43)
[2020-11-05] MEDS: Gabapentin 400 MG CAPSULE PO SCH (20:16)
[2020-11-05] MEDS: carvediloL 25 MG TABLET PO SCH (20:16)
[2020-11-05] MEDS ORDERED: 0.9 % Sodium Chloride 250 ML ONE (22:22)
[2020-11-06] MEDS: 0.9 % Sodium Chloride 1,000 ML IVC SCH (02:32)
[2020-11-06 05:26] LABS: Basophils % 0.5 %; Eosinophils # 0.1 K/mcL (0.0-0.6); Eosinophils % 1.7 %; Hematocrit 19.3 % (35.3-44.9); Immature Granulocytes % 1.2 % (0-4); Lymphocytes # 1.9 K/mcL (0.6-4.6); Lymphocytes % 29.3 %; Mean Corpuscular HGB Conc 32.1 g/dL (31.6-35.5); Mean Corpuscular Hemoglobin 29.1 pg (28.0-33.3); Mean Corpuscular Volume 90.6 fL (83.0-100.0); Mean Platelet Volume 9.1 fL (9.4-12.4); Monocytes # 0.5 K/mcL (0.0-1.3); Monocytes % 7.3 %; Nucleated Red Blood Cells 2.1 /100 WBC (0); Platelet Count 173 K/mcL (140-400); Red Blood Count 2.13 M/mcL (3.82-4.97); Red Cell Distribution Width 17.6 % (11.5-14.5); White Blood Count 6.6 K/mcL (4.3-11.1)
[2020-11-06 05:30] LABS: Hemoglobin 6.2 g/dL (11.5-15.4)
[2020-11-06 05:43] LABS: Calcium 8.2 mg/dL (8.6-10.3); Potassium 3.8 mEq/L (3.5-5.1)
[2020-11-06] MEDS: Insulin LISPRO 300 UNITS/3 ML VIAL SUBQ SCH ×4 (07:11→20:29)
[2020-11-06] MEDS: carvediloL 25 MG TABLET PO SCH ×2 (07:12→17:04)
[2020-11-06] MEDS: Gabapentin 400 MG CAPSULE PO SCH ×2 (07:12→20:28)
[2020-11-06] MEDS ORDERED: 0.9 % Sodium Chloride 250 ML ONE (08:57)
[2020-11-06 09:38] LABS: Estimated Average Glucose 151 mg/dl; Hemoglobin A1C 6.9 %
[2020-11-07 02:33] LABS: Basophils % 0.3 %; Eosinophils # 0.2 K/mcL (0.0-0.6); Hematocrit 22.5 % (35.3-44.9); Immature Granulocytes % 0.8 % (0-4); Lymphocytes # 1.8 K/mcL (0.6-4.6); Lymphocytes % 30.3 %; Mean Corpuscular HGB Conc 31.1 g/dL (31.6-35.5); Mean Platelet Volume 8.8 fL (9.4-12.4); Monocytes # 0.4 K/mcL (0.0-1.3); Monocytes % 6.4 %; Neutrophils # 3.6 K/mcL (1.6-8.9); Nucleated Red Blood Cells 0.8 /100 WBC (0); Platelet Count 157 K/mcL (140-400); Red Cell Distribution Width 17.6 % (11.5-14.5); Segmented Neutrophils % 59.2 %; White Blood Count 6.1 K/mcL (4.3-11.1)
[2020-11-07 02:54] LABS: Potassium 4.2 mEq/L (3.5-5.1)
[2020-11-07] MEDS: carvediloL 25 MG TABLET PO SCH ×2 (07:29→16:56)
[2020-11-07] MEDS: Insulin LISPRO 300 UNITS/3 ML VIAL SUBQ SCH ×4 (07:29→20:23)
[2020-11-07] MEDS: Gabapentin 400 MG CAPSULE PO SCH ×2 (07:29→20:23)
[2020-11-07] MEDS ORDERED: 0.9 % Sodium Chloride 250 ML ONE (09:47)
[2020-11-07] MEDS: Acetaminophen 325 MG TABLET PO PRN (12:36)
[2020-11-08 00:52] LABS: Basophils % 0.4 %; Eosinophils # 0.2 K/mcL (0.0-0.6); Eosinophils % 3.7 %; Hematocrit 24.9 % (35.3-44.9); Immature Granulocytes % 0.5 % (0-4); Lymphocytes # 1.5 K/mcL (0.6-4.6); Lymphocytes % 26.6 %; Mean Corpuscular HGB Conc 32.1 g/dL (31.6-35.5); Mean Corpuscular Hemoglobin 28.4 pg (28.0-33.3); Mean Corpuscular Volume 88.3 fL (83.0-100.0); Mean Platelet Volume 9.3 fL (9.4-12.4); Monocytes # 0.4 K/mcL (0.0-1.3); Monocytes % 6.8 %; Neutrophils # 3.4 K/mcL (1.6-8.9); Nucleated Red Blood Cells 0.4 /100 WBC (0); Platelet Count 162 K/mcL (140-400); Red Blood Count 2.82 M/mcL (3.82-4.97); Red Cell Distribution Width 16.6 % (11.5-14.5); White Blood Count 5.5 K/mcL (4.3-11.1)
[2020-11-08 01:13] LABS: Potassium 4.8 mEq/L (3.5-5.1)
[2020-11-08] MEDS: Gabapentin 400 MG CAPSULE PO SCH ×2 (07:09→20:15)
[2020-11-08] MEDS: carvediloL 25 MG TABLET PO SCH ×2 (07:10→16:53)
[2020-11-08] MEDS: Insulin LISPRO 300 UNITS/3 ML VIAL SUBQ SCH ×4 (07:10→20:29)
[2020-11-08] MEDS ORDERED: Acetaminophen/Butalbital/CaffeineTABLET PO ONE (09:57)
[2020-11-08] MEDS ORDERED: Acetaminophen/Butalbital/CaffeineTABLET PO PRN (20:32)
[2020-11-09 08:15] LABS: Basophils % 0.4 %; Eosinophils # 0.2 K/mcL (0.0-0.6); Eosinophils % 2.5 %; Hematocrit 28.3 % (35.3-44.9); Hemoglobin 9.3 g/dL (11.5-15.4); Immature Granulocytes % 0.3 % (0-4); Lymphocytes # 1.5 K/mcL (0.6-4.6); Lymphocytes % 22.1 %; Mean Corpuscular HGB Conc 32.9 g/dL (31.6-35.5); Mean Corpuscular Volume 88.2 fL (83.0-100.0); Mean Platelet Volume 9.1 fL (9.4-12.4); Monocytes # 0.5 K/mcL (0.0-1.3); Monocytes % 6.7 %; Neutrophils # 4.6 K/mcL (1.6-8.9); Platelet Count 178 K/mcL (140-400); Red Blood Count 3.21 M/mcL (3.82-4.97); White Blood Count 6.7 K/mcL (4.3-11.1)
[2020-11-09 08:30] LABS: Potassium 5.3 mEq/L (3.5-5.1)
[2020-11-09] MEDS: Acetaminophen 325 MG TABLET PO PRN ×2 (08:30→20:53)
[2020-11-09] MEDS: carvediloL 25 MG TABLET PO SCH ×2 (08:34→16:39)
[2020-11-09] MEDS: Insulin LISPRO 300 UNITS/3 ML VIAL SUBQ SCH ×4 (08:34→20:52)
[2020-11-09] MEDS: Gabapentin 400 MG CAPSULE PO SCH ×2 (08:34→20:51)
[2020-11-09 09:47] LABS: Calcium 8.4 mg/dL (8.6-10.3)
[2020-11-10 02:05] LABS: Basophils % 0.3 %; Eosinophils # 0.1 K/mcL (0.0-0.6); Eosinophils % 2.2 %; Hematocrit 25.7 % (35.3-44.9); Hemoglobin 8.5 g/dL (11.5-15.4); Immature Granulocytes % 0.3 % (0-4); Lymphocytes # 1.5 K/mcL (0.6-4.6); Lymphocytes % 25.7 %; Mean Corpuscular HGB Conc 33.1 g/dL (31.6-35.5); Mean Corpuscular Volume 87.7 fL (83.0-100.0); Mean Platelet Volume 9.1 fL (9.4-12.4); Monocytes # 0.5 K/mcL (0.0-1.3); Monocytes % 8.6 %; Neutrophils # 3.6 K/mcL (1.6-8.9); Platelet Count 149 K/mcL (140-400); Red Blood Count 2.93 M/mcL (3.82-4.97); Red Cell Distribution Width 15.5 % (11.5-14.5); Segmented Neutrophils % 62.9 %; White Blood Count 5.8 K/mcL (4.3-11.1)
[2020-11-10 02:18] LABS: Calcium 8.4 mg/dL (8.6-10.3)
[2020-11-10 05:39] VITALS: O2SAT 98
[2020-11-10 08:19] VITALS: BP 128/75; PULSE 67; TEMP 98.6
[2020-11-10] MEDS: Gabapentin 400 MG CAPSULE PO SCH (09:51)
[2020-11-10] MEDS: carvediloL 25 MG TABLET PO SCH (09:51)
[2020-11-10] MEDS: Insulin LISPRO 300 UNITS/3 ML VIAL SUBQ SCH (09:51)
== END 2020-11-10 10:46 | disposition home or self-care (01) | DRG 812 ==
LOC: 3ANU 11:10 → EMEROOARM 11:10 → 2ANU 16:10
PROVIDERS: ADMIT General Practice; ATTEND General Practice

== ENCOUNTER 2020-11-14 19:42 | Observation (INO) ==
[2020-11-14] MEDS ORDERED: Isovue-370 500 ML BOTTLE IVP ONE ×2 (20:31→21:59)
[2020-11-14 21:33] LABS: Basophils % 0.5 %; Eosinophils # 0.1 K/mcL (0.0-0.6); Hematocrit 25.5 % (35.3-44.9); Hemoglobin 8.5 g/dL (11.5-15.4); Immature Granulocytes % 0.3 % (0-4); Lymphocytes # 0.5 K/mcL (0.6-4.6); Lymphocytes % 8.1 %; Mean Corpuscular HGB Conc 33.3 g/dL (31.6-35.5); Mean Corpuscular Hemoglobin 28.1 pg (28.0-33.3); Mean Corpuscular Volume 84.2 fL (83.0-100.0); Mean Platelet Volume 9.4 fL (9.4-12.4); Monocytes # 0.4 K/mcL (0.0-1.3); Monocytes % 6.6 %; Neutrophils # 4.8 K/mcL (1.6-8.9); Platelet Count 152 K/mcL (140-400); Red Blood Count 3.03 M/mcL (3.82-4.97); Red Cell Distribution Width 14.6 % (11.5-14.5); Segmented Neutrophils % 83.5 %; White Blood Count 5.8 K/mcL (4.3-11.1)
[2020-11-14 21:41] LABS: INR 1.1; Prothrombin Time 12.5 Seconds (9.4-12.1)
[2020-11-14 21:43] LABS: Activated Partial Thrombo Time 28.1 Seconds (26.0-36.0)
[2020-11-14] MEDS ORDERED: Ondansetron 4 MG/2 ML VIAL IVP ONE (21:57)
[2020-11-14] MEDS ORDERED: Azithromycin 500 MG in 0.9 % Sodium Chloride 250 ML IVPB ONE (21:58)
[2020-11-14] MEDS ORDERED: cefTRIAXone 1,000 MG in Water for inj. (sterile) 10 ML IVP ONE (21:58)
[2020-11-14 22:05] LABS: Influenza A PCR Negative (Negative); Influenza B PCR Negative (Negative); Resp. Syncytial Virus PCR Negative (Negative)
[2020-11-14 22:06] LABS: SARS-CoV-2 by PCR (In House) Negative (Negative)
[2020-11-14 23:17] LABS: Bacteria,Urine Few per hpf (None-Few); Bilirubin,Urine Negative (Negative); Blood,Urine Moderate (Negative); Clarity,Urine Turbid (Clear); Color,Urine Light-Yellow (Yellow); Glucose,Urine (UA) >=1000 mg/dL (Normal); Ketones,Urine Negative (Negative); Leukocyte Esterase,Urine Large (Negative); Mucus,Urine Few per lpf (None-Few); Nitrite,Urine Positive (Negative); Protein,Urine 50 mg/dL (Neg-Trace); Specific Gravity,Urine 1.014 (1.010-1.025); Squamous Epithelial Cell,Urine Few per hpf (None-Few); Urobilinogen,Urine Normal (Normal); WBC,Urine TNTC per hpf (0-3)
[2020-11-15 00:22] LABS: Albumin 3.1 g/dL (3.5-5.7); Bilirubin,Direct 0.1 mg/dL (0.0-0.2); Bilirubin,Indirect 0.4 mg/dL (0.0-1.0); Bilirubin,Total 0.5 mg/dL (0.3-1.0); Calcium 8.3 mg/dL (8.6-10.3); Magnesium 1.8 mg/dL (1.6-2.6); Potassium 4.6 mEq/L (3.5-5.1); Total Protein 6.1 g/dL (6.4-8.9)
[2020-11-15 00:28] LABS: Troponin I 0.07 ng/mL (< 0.04)
[2020-11-15] MEDS ORDERED: 0.9 % Sodium Chloride 1,000 ML IVC ONE (00:28)
[2020-11-15] MEDS ORDERED: *HR* Heparin 5,000 UNIT/ML VIAL IVP PRN (01:29)
[2020-11-15] MEDS ORDERED: *HR* Heparin 5,000 UNIT/ML VIAL IVP ONE (01:29)
[2020-11-15] MEDS: Heparin 25,000UNIT/250ML 1/2NS 25,000 UNIT/250 ML IV.SOLN IVC SCH (01:50)
[2020-11-15] MEDS ORDERED: D5% in Water 1,000 ML IVC PRN (02:57)
[2020-11-15] MEDS ORDERED: *HR* Dextrose 50 % in Water (Vial) 50 ML VIAL IVP PRN (02:57)
[2020-11-15] MEDS ORDERED: Dextrose Gel 15 GM/37.5 ML TUBE PO PRN ×2 (02:57)
[2020-11-15] MEDS ORDERED: Naloxone 0.4 MG/ML INJ IVP PRN (03:00)
[2020-11-15] MEDS ORDERED: Acetaminophen 325 MG TABLET PO PRN (03:00)
[2020-11-15] MEDS ORDERED: *HR* OxyCODONE Immed Rel 5 MG TABLET PO PRN (03:00)
[2020-11-15 03:11] LABS: Hematocrit 27.4 % (35.3-44.9); Hemoglobin 8.7 g/dL (11.5-15.4); Mean Corpuscular HGB Conc 31.8 g/dL (31.6-35.5); Mean Corpuscular Hemoglobin 27.5 pg (28.0-33.3); Mean Corpuscular Volume 86.7 fL (83.0-100.0); Mean Platelet Volume 9.3 fL (9.4-12.4); Platelet Count 181 K/mcL (140-400); Red Blood Count 3.16 M/mcL (3.82-4.97); Red Cell Distribution Width 14.7 % (11.5-14.5); White Blood Count 5.1 K/mcL (4.3-11.1)
[2020-11-15 03:19] LABS: INR 1.3; Prothrombin Time 14.5 Seconds (9.4-12.1)
[2020-11-15 03:20] LABS: Heparin anti-factor XA UFH 1.12 IU/mL (0.30-0.70)
[2020-11-15] MEDS: Insulin LISPRO 300 UNITS/3 ML VIAL SUBQ SCH ×5 (03:33→20:38)
[2020-11-15 07:49] LABS: Chol/HDL Ratio 2.8 (0-4.9); Potassium 4.3 mEq/L (3.5-5.1)
[2020-11-15] MEDS ORDERED: cefTRIAXone 2,000 MG in 0.9 % Sodium Chloride Mini Bag 100 ML IVPB SCH (08:00)
[2020-11-15 08:06] LABS: Ferritin 378 ng/mL (10-120)
[2020-11-15 10:14] LABS: Heparin anti-factor XA UFH 0.27 IU/mL (0.30-0.70)
[2020-11-15 11:10] LABS: Estimated Average Glucose 163 mg/dl; Hemoglobin A1C 7.3 %
[2020-11-15] MEDS: carvediloL 25 MG TABLET PO SCH ×2 (12:03→16:59)
[2020-11-15] MEDS: Gabapentin 300 MG CAPSULE PO SCH ×2 (12:05→17:06)
[2020-11-15] MEDS: Furosemide 40 MG TABLET PO SCH (12:05)
[2020-11-15] MEDS: Aspirin Enteric Coated 81 MG Tablet PO SCH (12:05)
[2020-11-15] MEDS: cefTRIAXone 2,000 MG in Water for inj. (sterile) 10 ML IVP SCH (12:06)
[2020-11-15] MEDS: *HR* Heparin 5,000 UNIT/ML VIAL IVP PRN ×2 (12:07→20:36)
[2020-11-15] MEDS ORDERED: Perflutren Lipid Microsphere 1.3 ML in 0.9 % Sodium Chloride 8.7 ML IVP PRN (12:32)
[2020-11-15 14:02] LABS: Lactate Dehydrogenase 164 Units/L (140-271)
[2020-11-15] MEDS: Gabapentin 400 MG CAPSULE PO SCH (20:39)
[2020-11-15] MEDS ORDERED: Azithromycin 500 MG in 0.9 % Sodium Chloride 250 ML IVPB SCH (22:00)
[2020-11-16] MEDS: Heparin 25,000UNIT/250ML 1/2NS 25,000 UNIT/250 ML IV.SOLN IVC SCH (00:49)
[2020-11-16 03:54] LABS: Potassium 4.1 mEq/L (3.5-5.1)
[2020-11-16] MEDS: Furosemide 40 MG TABLET PO SCH ×2 (08:13→11:16)
[2020-11-16] MEDS: carvediloL 25 MG TABLET PO SCH (08:26)
[2020-11-16] MEDS: Gabapentin 400 MG CAPSULE PO SCH (08:26)
[2020-11-16] MEDS: Insulin LISPRO 300 UNITS/3 ML VIAL SUBQ SCH ×2 (08:27→12:22)
[2020-11-16] MEDS: Aspirin Enteric Coated 81 MG Tablet PO SCH (08:27)
[2020-11-16] MEDS ORDERED: lisinopriL 5 MG TABLET PO SCH (09:00)
[2020-11-16] MEDS ORDERED: GlipiZIDE 5 MG TABLET PO SCH (09:00)
[2020-11-16] MEDS ORDERED: lisinopriL 10 MG TABLET PO SCH (09:00)
[2020-11-16] MEDS ORDERED: allopurinoL 100 MG TABLET PO SCH (09:00)
[2020-11-16 10:25] LABS: INR 1.1; Prothrombin Time 12.6 Seconds (9.4-12.1)
[2020-11-16 10:28] VITALS: PULSE 67; TEMP 97.9
[2020-11-16 10:36] LABS: Hematocrit 24.9 % (35.3-44.9); Mean Corpuscular HGB Conc 32.1 g/dL (31.6-35.5); Mean Corpuscular Hemoglobin 28.1 pg (28.0-33.3); Mean Corpuscular Volume 87.4 fL (83.0-100.0); Mean Platelet Volume 9.7 fL (9.4-12.4); Platelet Count 178 K/mcL (140-400); Red Blood Count 2.85 M/mcL (3.82-4.97); White Blood Count 4.3 K/mcL (4.3-11.1)
[2020-11-16] MEDS: cefTRIAXone 2,000 MG in Water for inj. (sterile) 10 ML IVP SCH (11:17)
[2020-11-16] MEDS ORDERED: Apixaban 5 MG TABLET PO SCH (11:30)
[2020-11-16 14:40] VITALS: BP 121/65; O2SAT 98
[2020-11-18 02:01] LABS: Lambda Qnt Free Light Chains 38.91 mg/L (5.71-26.30)
[2020-11-18 07:19] LABS: ANA IgG by ELISA NONE DETECTED (None Detected); Kappa Qnt Free Light Chains 48.98 mg/L (3.30-19.40)
[2020-11-20 00:12] LABS: Alpha 2 Globulin (PEP) 1.21 g/dL (0.48-1.05); Beta Globulin (PEP) 0.59 g/dL (0.48-1.10)
[2020-11-20 10:37] LABS: Immunoglobulin A 97 mg/dL (68-408); Immunoglobulin G 638 mg/dL (768-1632); Immunoglobulin M 53 mg/dL (35-263)
[2020-11-20 10:44] LABS: IFE Reflexed IFE Done
[2020-11-23] MEDS ORDERED: Apixaban 5 MG TABLET PO SCH (21:00)
== END 2020-11-16 15:12 | disposition home or self-care (01) ==
LOC: 3ANU 19:42 → EMEROOARM 19:42 → SUATTDRO 11-15 02:16 → 3ANU 11-15 02:52
PROVIDERS: ADMIT Student in an Organized Health Care Education/Training Program; ATTEND Hospitalist

== ENCOUNTER 2020-12-24 22:41 | Inpatient (IN) ==
[2020-12-24] MEDS ORDERED: 0.9 % Sodium Chloride 500 ML IVC ONE (22:44)
[2020-12-24] MEDS ORDERED: Aspirin 81 MG TAB.CHEW PO ONE (22:44)
[2020-12-24 23:10] LABS: Basophils % 0.3 %; Eosinophils # 0.1 K/mcL (0.0-0.6); Eosinophils % 1.2 %; Hemoglobin 7.8 g/dL (11.5-15.4); Immature Granulocytes % 0.9 % (0-4); Lymphocytes # 1.1 K/mcL (0.6-4.6); Lymphocytes % 9.5 %; Mean Corpuscular HGB Conc 31.2 g/dL (31.6-35.5); Mean Corpuscular Hemoglobin 26.1 pg (28.0-33.3); Mean Corpuscular Volume 83.6 fL (83.0-100.0); Mean Platelet Volume 9.5 fL (9.4-12.4); Monocytes # 0.7 K/mcL (0.0-1.3); Monocytes % 5.9 %; Neutrophils # 9.1 K/mcL (1.6-8.9); Platelet Count 229 K/mcL (140-400); Red Blood Count 2.99 M/mcL (3.82-4.97); Red Cell Distribution Width 16.5 % (11.5-14.5); Segmented Neutrophils % 82.2 %
[2020-12-24 23:19] LABS: INR 1.3; Prothrombin Time 14.5 Seconds (9.4-12.1)
[2020-12-24 23:21] LABS: Activated Partial Thrombo Time 26.4 Seconds (26.0-36.0)
[2020-12-24 23:33] LABS: Albumin 2.8 g/dL (3.5-5.7); Albumin/Globulin Ratio 0.8 (1.1-2.2); Bilirubin,Indirect 0.3 mg/dL (0.0-1.0); Bilirubin,Total 0.3 mg/dL (0.3-1.0); Calcium 8.7 mg/dL (8.6-10.3); Globulin 3.7 g/dL (2.4-3.5); Potassium 3.7 mEq/L (3.5-5.1); Total Protein 6.5 g/dL (6.4-8.9); Troponin I 0.19 ng/mL (< 0.04)
[2020-12-25] MEDS ORDERED: Azithromycin 500 MG in 0.9 % Sodium Chloride 250 ML IVPB ONE (00:07)
[2020-12-25] MEDS ORDERED: cefTRIAXone 1,000 MG in Water for inj. (sterile) 10 ML IVP ONE (00:07)
[2020-12-25 00:29] LABS: ABG Base Excess -6 mEq/L (-2 to 3); ABG HCO3 19 mEq/L (21-27); ABG Oxygen Saturation 92 % (95-98); ABG PCO2 33 mmHg (35-45); ABG PH 7.37 pH Units (7.32-7.45); ABG PO2 65 mmHg (85-104); ABG TCO2 20 mEq/L (20-26)
[2020-12-25] MEDS ORDERED: Melatonin 3 MG TABLET PO PRN (00:48)
[2020-12-25] MEDS ORDERED: Naloxone 0.4 MG/ML INJ IVP PRN (00:48)
[2020-12-25] MEDS ORDERED: Dextrose Gel 15 GM/37.5 ML TUBE PO PRN ×2 (00:53)
[2020-12-25] MEDS ORDERED: D5% in Water 1,000 ML IVC PRN (00:53)
[2020-12-25] MEDS ORDERED: *HR* Dextrose 50 % in Water (Syg) 50 ML SYRINGE IVP PRN (00:53)
[2020-12-25] MEDS ORDERED: Insulin Human Regular 5 UNIT in 0.9 % Sodium Chloride 10 ML IV ONE (00:56)
[2020-12-25 01:06] LABS: Bacteria,Urine Few per hpf (None-Few); Bilirubin,Urine Negative (Negative); Blood,Urine Small (Negative); Budding Yeast,Urine Few per hpf (None Seen); Clarity,Urine Turbid (Clear); Color,Urine Light-Yellow (Yellow); Glucose,Urine (UA) >=1000 mg/dL (Normal); Ketones,Urine Negative (Negative); Leukocyte Esterase,Urine Large (Negative); Mucus,Urine Few per lpf (None-Few); Nitrite,Urine Negative (Negative); Protein,Urine Trace mg/dL (Neg-Trace); RBC,Urine 50-100 per hpf (0-3); Squamous Epithelial Cell,Urine Few per hpf (None-Few); Urobilinogen,Urine Normal (Normal); WBC,Urine TNTC per hpf (0-3)
[2020-12-25] MEDS: Insulin DETEMIR 100 UNIT/ML X5UNITS SUBQ SCH ×3 (01:53→21:38)
[2020-12-25] MEDS ORDERED: *HR* Heparin 5,000 UNIT/ML VIAL IVP ONE (01:55)
[2020-12-25] MEDS ORDERED: *HR* Heparin 5,000 UNIT/ML VIAL IVP PRN ×2 (01:55)
[2020-12-25] MEDS ORDERED: Heparin 25,000UNIT/250ML 1/2NS 25,000 UNIT/250 ML IV.SOLN IVC SCH ×2 (02:00→11:52)
[2020-12-25 02:42] LABS: Calcium 8.1 mg/dL (8.6-10.3); Magnesium 1.9 mg/dL (1.6-2.6); Potassium 3.6 mEq/L (3.5-5.1)
[2020-12-25] MEDS: Ipratropium 1 PUFF INHALER IH SCH ×4 (03:37→20:34)
[2020-12-25 03:57] LABS: Hematocrit 22.9 % (35.3-44.9); Mean Corpuscular HGB Conc 30.6 g/dL (31.6-35.5); Mean Corpuscular Hemoglobin 26.3 pg (28.0-33.3); Mean Corpuscular Volume 86.1 fL (83.0-100.0); Mean Platelet Volume 10.2 fL (9.4-12.4); Platelet Count 202 K/mcL (140-400); Red Blood Count 2.66 M/mcL (3.82-4.97); Red Cell Distribution Width 16.3 % (11.5-14.5); White Blood Count 8.4 K/mcL (4.3-11.1)
[2020-12-25 05:19] LABS: INR 1.3; Prothrombin Time 14.7 Seconds (9.4-12.1)
[2020-12-25 05:20] LABS: Heparin anti-factor XA UFH 1.16 IU/mL (0.30-0.70)
[2020-12-25] MEDS ORDERED: MethylPREDNISolone 40 MG/ML VIAL IVP SCH (06:00)
[2020-12-25] MEDS ORDERED: Insulin LISPRO 300 UNITS/3 ML VIAL SUBQ SCH ×4 (07:30→21:00)
[2020-12-25] MEDS ORDERED: Insulin DETEMIR 100 UNIT/ML X5UNITS SUBQ ONE (08:26)
[2020-12-25] MEDS: Gabapentin 400 MG CAPSULE PO SCH ×2 (08:26→21:38)
[2020-12-25] MEDS: Furosemide 20 MG/2 ML VIAL IVP SCH ×2 (08:26→21:38)
[2020-12-25] MEDS ORDERED: Insulin DETEMIR 100 UNIT/ML X5UNITS SUBQ SCH (08:30)
[2020-12-25] MEDS ORDERED: Furosemide 20 MG/2 ML VIAL IVP SCH (09:00)
[2020-12-25] MEDS: predniSONE 20 MG TABLET PO SCH (12:23)
[2020-12-25] MEDS: Insulin LISPRO 300 UNITS/3 ML VIAL SUBQ SCH ×3 (12:23→21:36)
[2020-12-25] MEDS: Acetaminophen 325 MG TABLET PO PRN ×2 (12:23→21:41)
[2020-12-25] MEDS: cefTRIAXone 1,000 MG in Water for inj. (sterile) 10 ML IVP SCH (16:51)
[2020-12-25] MEDS: Azithromycin 500 MG in 0.9 % Sodium Chloride 250 ML IVPB SCH (16:52)
[2020-12-26] MEDS ORDERED: Insulin DETEMIR 100 UNIT/ML X5UNITS SUBQ ONE ×3 (00:18→14:05)
[2020-12-26 02:26] LABS: Hematocrit 23.5 % (35.3-44.9); Hemoglobin 7.3 g/dL (11.5-15.4); Immature Granulocytes % 1.2 % (0-4); Lymphocytes # 0.9 K/mcL (0.6-4.6); Lymphocytes % 8.4 %; Mean Corpuscular HGB Conc 31.1 g/dL (31.6-35.5); Mean Corpuscular Hemoglobin 26.1 pg (28.0-33.3); Mean Corpuscular Volume 83.9 fL (83.0-100.0); Mean Platelet Volume 9.9 fL (9.4-12.4); Monocytes # 0.3 K/mcL (0.0-1.3); Monocytes % 2.7 %; Neutrophils # 8.9 K/mcL (1.6-8.9); Platelet Count 249 K/mcL (140-400); Red Cell Distribution Width 16.3 % (11.5-14.5); Segmented Neutrophils % 87.7 %; White Blood Count 10.1 K/mcL (4.3-11.1)
[2020-12-26 02:40] LABS: Calcium 8.7 mg/dL (8.6-10.3)
[2020-12-26] MEDS: Ipratropium 1 PUFF INHALER IH SCH ×2 (04:11→10:53)
[2020-12-26] MEDS: Acetaminophen 325 MG TABLET PO PRN ×3 (05:40→22:30)
[2020-12-26] MEDS ORDERED: Insulin LISPRO 300 UNITS/3 ML VIAL SUBQ ONE (05:53)
[2020-12-26] MEDS: Gabapentin 400 MG CAPSULE PO SCH ×2 (08:50→20:57)
[2020-12-26] MEDS: predniSONE 20 MG TABLET PO SCH (08:50)
[2020-12-26] MEDS: Insulin LISPRO 300 UNITS/3 ML VIAL SUBQ SCH ×5 (08:50→20:59)
[2020-12-26] MEDS: Furosemide 20 MG/2 ML VIAL IVP SCH (08:51)
[2020-12-26] MEDS: Benzonatate 100 MG CAPSULE PO PRN ×2 (14:55→23:10)
[2020-12-26] MEDS: Ipratropium/Albuterol Neb 3 ML IH SCH ×2 (15:18→21:52)
[2020-12-26] MEDS: Furosemide 40 MG TABLET PO SCH (17:23)
[2020-12-26] MEDS: cefTRIAXone 1,000 MG in Water for inj. (sterile) 10 ML IVP SCH (17:23)
[2020-12-26] MEDS: Azithromycin 500 MG in 0.9 % Sodium Chloride 250 ML IVPB SCH (17:23)
[2020-12-26] MEDS: Insulin DETEMIR 100 UNIT/ML X5UNITS SUBQ SCH ×3 (20:57→22:33)
[2020-12-26] MEDS: carvediloL 25 MG TABLET PO SCH (20:58)
[2020-12-26] MEDS: Apixaban 5 MG TABLET PO SCH (20:58)
[2020-12-26] MEDS: Budesonide/Formoterol 80/4.5 1 PUFF INH IH SCH (21:53)
[2020-12-27 02:24] LABS: Mean Corpuscular HGB Conc 31.8 g/dL (31.6-35.5); Mean Corpuscular Hemoglobin 26.8 pg (28.0-33.3); Mean Corpuscular Volume 84.3 fL (83.0-100.0); Mean Platelet Volume 9.7 fL (9.4-12.4); Platelet Count 231 K/mcL (140-400); Red Blood Count 2.61 M/mcL (3.82-4.97)
[2020-12-27 02:43] LABS: Calcium 8.7 mg/dL (8.6-10.3); Potassium 4.3 mEq/L (3.5-5.1)
[2020-12-27] MEDS: Ipratropium/Albuterol Neb 3 ML IH SCH ×4 (03:42→20:34)
[2020-12-27] MEDS: Insulin LISPRO 300 UNITS/3 ML VIAL SUBQ SCH ×7 (08:39→21:25)
[2020-12-27] MEDS: Insulin DETEMIR 100 UNIT/ML X5UNITS SUBQ SCH ×2 (08:41→21:25)
[2020-12-27] MEDS: Acetaminophen 325 MG TABLET PO PRN ×2 (08:48→21:26)
[2020-12-27] MEDS: predniSONE 20 MG TABLET PO SCH (08:48)
[2020-12-27] MEDS: Aspirin Enteric Coated 81 MG Tablet PO SCH (08:48)
[2020-12-27] MEDS: allopurinoL 100 MG TABLET PO SCH (08:48)
[2020-12-27] MEDS: lisinopriL 10 MG TABLET PO SCH (08:48)
[2020-12-27] MEDS: Benzonatate 100 MG CAPSULE PO PRN (08:48)
[2020-12-27] MEDS: Apixaban 5 MG TABLET PO SCH ×2 (08:48→21:26)
[2020-12-27] MEDS: Gabapentin 400 MG CAPSULE PO SCH ×2 (08:48→21:26)
[2020-12-27] MEDS: Furosemide 40 MG TABLET PO SCH ×2 (08:49→16:51)
[2020-12-27] MEDS: carvediloL 25 MG TABLET PO SCH ×2 (08:49→21:27)
[2020-12-27] MEDS: Budesonide/Formoterol 80/4.5 1 PUFF INH IH SCH ×2 (09:26→20:34)
[2020-12-27 11:22] LABS: Hematocrit 23.3 % (35.3-44.9); Hemoglobin 7.2 g/dL (11.5-15.4)
[2020-12-27] MEDS: Benzonatate 100 MG CAPSULE PO SCH ×2 (16:52→21:27)
[2020-12-27] MEDS: cefTRIAXone 1,000 MG in Water for inj. (sterile) 10 ML IVP SCH (16:53)
[2020-12-27] MEDS: Azithromycin 500 MG in 0.9 % Sodium Chloride 250 ML IVPB SCH (16:53)
[2020-12-27 17:25] LABS: Hematocrit 23.7 % (35.3-44.9); Hemoglobin 7.3 g/dL (11.5-15.4)
[2020-12-27 17:47] LABS: Iron 32 mcg/dL (50-170)
[2020-12-27 18:07] LABS: Ferritin 908 ng/mL (10-120)
[2020-12-27 18:13] LABS: Folate 5.7 ng/mL (3.0-16.0)
[2020-12-27 23:06] LABS: Hematocrit 23.8 % (35.3-44.9); Hemoglobin 7.2 g/dL (11.5-15.4)
[2020-12-28 01:24] LABS: Hematocrit 23.1 % (35.3-44.9); Hemoglobin 7.1 g/dL (11.5-15.4); Mean Corpuscular HGB Conc 30.7 g/dL (31.6-35.5); Mean Corpuscular Hemoglobin 26.4 pg (28.0-33.3); Mean Corpuscular Volume 85.9 fL (83.0-100.0); Mean Platelet Volume 9.5 fL (9.4-12.4); Platelet Count 232 K/mcL (140-400); Red Blood Count 2.69 M/mcL (3.82-4.97); Red Cell Distribution Width 16.4 % (11.5-14.5)
[2020-12-28 01:42] LABS: Calcium 8.4 mg/dL (8.6-10.3); Potassium 4.5 mEq/L (3.5-5.1)
[2020-12-28] MEDS: Ipratropium/Albuterol Neb 3 ML IH SCH ×4 (04:09→19:36)
[2020-12-28] MEDS: Budesonide/Formoterol 80/4.5 1 PUFF INH IH SCH ×2 (07:28→19:36)
[2020-12-28] MEDS: Insulin LISPRO 300 UNITS/3 ML VIAL SUBQ SCH ×7 (08:56→21:09)
[2020-12-28] MEDS: Insulin DETEMIR 100 UNIT/ML X5UNITS SUBQ SCH ×2 (08:57→21:06)
[2020-12-28] MEDS: Furosemide 40 MG TABLET PO SCH ×2 (08:58→17:30)
[2020-12-28] MEDS: Apixaban 5 MG TABLET PO SCH ×2 (08:58→21:06)
[2020-12-28] MEDS: Benzonatate 100 MG CAPSULE PO SCH ×3 (08:58→21:05)
[2020-12-28] MEDS: carvediloL 25 MG TABLET PO SCH ×2 (08:58→17:30)
[2020-12-28] MEDS: Gabapentin 400 MG CAPSULE PO SCH ×2 (08:58→21:06)
[2020-12-28] MEDS: allopurinoL 100 MG TABLET PO SCH (08:59)
[2020-12-28] MEDS: lisinopriL 10 MG TABLET PO SCH (08:59)
[2020-12-28] MEDS: predniSONE 20 MG TABLET PO SCH (08:59)
[2020-12-28] MEDS: Aspirin Enteric Coated 81 MG Tablet PO SCH (09:01)
[2020-12-28] MEDS: Acetaminophen 325 MG TABLET PO PRN (09:01)
[2020-12-28 11:08] LABS: Estimated Average Glucose 329 mg/dl; Hemoglobin A1C 13.1 %
[2020-12-28] MEDS ORDERED: Azithromycin 250 MG TABLET PO SCH (17:00)
[2020-12-28] MEDS: cefTRIAXone 1,000 MG in Water for inj. (sterile) 10 ML IVP SCH (17:30)
[2020-12-28] MEDS ORDERED: FLU Vac QV 21-22 (6Month+)/PF 0.5 ML SYRINGE IM ONE (17:45)
[2020-12-29] MEDS: Ipratropium/Albuterol Neb 3 ML IH SCH ×2 (03:58→09:37)
[2020-12-29 07:50] LABS: Hematocrit 23.3 % (35.3-44.9); Hemoglobin 7.3 g/dL (11.5-15.4); Mean Corpuscular HGB Conc 31.3 g/dL (31.6-35.5); Mean Corpuscular Volume 82.9 fL (83.0-100.0); Mean Platelet Volume 9.8 fL (9.4-12.4); Platelet Count 264 K/mcL (140-400); Red Blood Count 2.81 M/mcL (3.82-4.97); Red Cell Distribution Width 16.1 % (11.5-14.5); White Blood Count 9.3 K/mcL (4.3-11.1)
[2020-12-29 07:53] VITALS: PULSE 66
[2020-12-29 08:15] LABS: Calcium 8.5 mg/dL (8.6-10.3); Potassium 4.5 mEq/L (3.5-5.1)
[2020-12-29] MEDS: Gabapentin 400 MG CAPSULE PO SCH (08:50)
[2020-12-29] MEDS: Furosemide 40 MG TABLET PO SCH (08:51)
[2020-12-29] MEDS: predniSONE 20 MG TABLET PO SCH (08:51)
[2020-12-29] MEDS: carvediloL 25 MG TABLET PO SCH (08:52)
[2020-12-29] MEDS: Apixaban 5 MG TABLET PO SCH (08:53)
[2020-12-29] MEDS: Aspirin Enteric Coated 81 MG Tablet PO SCH (08:53)
[2020-12-29] MEDS: lisinopriL 10 MG TABLET PO SCH (08:53)
[2020-12-29] MEDS: Benzonatate 100 MG CAPSULE PO SCH (08:53)
[2020-12-29] MEDS: allopurinoL 100 MG TABLET PO SCH (08:53)
[2020-12-29] MEDS: Insulin LISPRO 300 UNITS/3 ML VIAL SUBQ SCH ×4 (08:55→12:03)
[2020-12-29] MEDS: Insulin DETEMIR 100 UNIT/ML X5UNITS SUBQ SCH (08:56)
[2020-12-29] MEDS: Acetaminophen 325 MG TABLET PO PRN (09:05)
[2020-12-29] MEDS: Budesonide/Formoterol 80/4.5 1 PUFF INH IH SCH (09:39)
[2020-12-29 11:59] VITALS: BP 117/64; TEMP 98.8; O2SAT 92
[2020-12-30 03:29] LABS: % Iron Saturation 16 % (15-50); Transferrin 139 mg/dL (203-362)
== END 2020-12-29 15:58 | disposition home health service (06) | DRG 193 ==
LOC: EMEROOARM 22:41 → 2ANU 12-25 00:55 → SUATTDRO 12-25 00:55 → 2ANU 12-25 01:39
PROVIDERS: ADMIT Internal Medicine; ATTEND Internal Medicine